=== PATIENT | female | born 1980 | race Caucasian/White ===

== ENCOUNTER 2021-01-09 12:57 | Outpatient (REF) | payer BC, SELFPAY ==
--- NOTE | ~2021-01-09 | MM_ITS ---
EXAMINATION: MM DIAGNOSTIC DIGITAL BREAST TOMOSYNTHESIS, BILATERAL US DIAGNOSTIC ULTRASOUND BREAST, BILATERAL CLINICAL INFORMATION: 40-year-old with recent bilateral breast pain and palpable fullness. Symptoms subsequently resolved. The lifetime risk of breast cancer based on the Tyrer-Cuzick Model is 22.1%. COMPARISON: Mammography: 07/02/2018, baseline. TECHNIQUE: Digital breast tomosynthesis is performed in both the craniocaudal and mediolateral oblique views along with computer-aided detection (CAD). Synthesized 2D images are generated from the tomosynthesis. Ultrasound bilateral breasts is performed using grayscale imaging and color Doppler without and with harmonics. Left breast is targeted to the 1:00 to 5:00 position and right breast 7:00 to 11:00 position. FINDINGS: The breasts are heterogeneously dense, which may obscure small masses (ACR BI-RADS breast composition Category c). There are no significant masses, abnormal calcifications, or other abnormalities. No developing density. No skin thickening or coarsening of the Jb's ligaments. Bilateral targeted breast ultrasound shows no cystic or solid mass, architectural abnormality, or focal duct ectasia. There is no skin thickening or edema tracking in soft tissue planes. Results are discussed with the patient at time of visit. MM/MM tomosynthesis diagnostic BI IMPRESSION: 1. No mammographic evidence of malignancy there are inflammatory changes. 2. Unremarkable bilateral targeted breast ultrasound. ASSESSMENT: BI-RADS 1: Negative RECOMMENDATION: 1. Routine annual mammography screening. 2. The lifetime risk of breast cancer based on the Tyrer-Cuzick Model is 22.1%. Additional annual adjunct screening with breast MRI may be of benefit in women with a risk score of 20% or greater. This patient's information was entered into a reminder system with a target due date for their next mammogram.
== END 2021-01-09 12:58 | disposition home or self-care (01) ==
LOC: HO.MAMMO 12:57
PROVIDERS: Visit Provider Internal Medicine
DX: N63.15 Unspecified lump in the right breast, overlapping quadrants (principal); N63.25 Unspecified lump in the left breast, overlapping quadrants; N64.4 Mastodynia
CPT/HCPCS: 76642; 77062; 77066

== ENCOUNTER → 2021-01-24 11:30 | Outpatient (BNVA) | payer BC, SELFPAY | PROVIDERS: PCP Internal Medicine; Visit Provider Surgery ==

== ENCOUNTER 2021-02-02 09:32 | Outpatient (REF) | payer BC, SELFPAY ==
--- NOTE | ~2021-02-02 | MR_ITS ---
EXAMINATION: MR BREAST WITHOUT AND WITH CONTRAST, BILATERAL CLINICAL INFORMATION: High-risk screening. History of recent bilateral breast pain. Family history of breast cancer including maternal aunt and paternal grandmother. Question of lump on the outside left breast. COMPARISON: Mammogram and ultrasound 01/09/2021. No prior breast MRI. TECHNIQUE: Imaging was performed with a dedicated breast coil. Prior to the administration of contrast, bilateral axial T1 and bilateral axial T2 weighted sequences were obtained. After the uneventful administration of?5.5 mL of Gadavist, dynamic contrast-enhanced VIBRANT series through the breasts in the axial plane were performed. Subtracted images were performed and reviewed. A delayed sagittal sequence through both breasts was acquired. Additionally, CAD post-processing, including maximum intensity projections, 3-D reconstructions and kinetic analysis, were performed an independent workstation and reviewed by the interpreting radiologist is a portion of this exam. FINDINGS: The patient's fibroglandular tissue demonstrates moderate background enhancement. LEFT BREAST: In the 2 o'clock position of the left breast, 4.7 cm from nipple, there is a 0.4 cm enhancing focus with indistinct margins (image 58, series 100). Finding demonstrates plateau or type II enhancement. There is no T2 correlate. Finding is not adjacent to a blood vessel. No mammographic correlate. MRI guided biopsy is recommended. Anterior to this finding in the 12 o'clock position, there is a linear area of [id number] enhancement measuring 0.5 cm in size anterior to posterior which also demonstrates plateau or type II enhancement (image 85, series 100). There is no T2 correlate. No mammographic correlate. Finding is indeterminate. MRI-guided biopsy is recommended. Both findings are asymmetric compared to the contralateral side. Both findings do not have T2 correlates. Review of the kinetic images demonstrates no additional suspicious findings. RIGHT BREAST: No suspicious masslike or non-masslike enhancement. No abnormal skin thickening or nipple retraction. No abnormal architectural distortion. Review of the T2 weighted images demonstrates no fibrocystic changes or dilated ducts. Review of kinetic images reveals no additional findings. There is no suspicious internal mammary chain or axillary adenopathy. Limited views of the chest and abdomen are unremarkable. MR/MR breast BI wo/w con IMPRESSION: 1. Indeterminate enhancing focus, 2 o'clock and linear enhancement, 12 o'clock in the left breast. MRI-guided biopsy recommended. 2. No convincing MR specific evidence of malignancy within the contralateral right breast. ASSESSMENT: LEFT BREAST: BI-RADS 4 - Suspicious abnormality - Biopsy should be considered. RIGHT BREAST: BI-RADS 1-Negative. RECOMMENDATIONS: MRI-guided biopsy, left breast, 2 areas. These can be scheduled on the same day. We will contact the referring office at the biopsy recommendations.
== END 2021-02-02 09:33 | disposition home or self-care (01) ==
LOC: HO.MRI 09:32
PROVIDERS: Visit Provider Surgery
DX: Z91.89 Other specified personal risk factors, not elsewhere classified (principal); N64.4 Mastodynia
CPT/HCPCS: 77049; A9585

== ENCOUNTER 2021-02-15 07:47 | Outpatient (REF) | payer BC, SELFPAY ==
--- NOTE | ~2021-02-15 | MM_ITS ---
EXAMINATION: MR GUIDED VACUUM-ASSISTED CORE BIOPSY BREAST, LEFT (TWO SITES) MM DIGITAL MAMMOGRAPHY POST BIOPSY, LEFT CLINICAL INFORMATION: 40-year-old with 2 small sites of enhancement left breast on high risk screening MRI. COMPARISON: Mammography 01/09/2021, bilateral targeted breast ultrasound 01/09/2021, high risk screening MRI without and with contrast 02/02/2021. TECHNIQUE/PROCEDURE: Informed consent was obtained from the patient after discussion of the benefits, risks, and alternatives to biopsy today. Patient appeared to understand. Gave opportunity for questions. Patient signed consent form. Biopsy is performed under MRI guidance using breast surface coil. Imaging is performed without and with use of 5.5 mL Gadavist gadolinium contrast. [employer] introducer localization system is used with grid. LEFT (2:00 Lesion): LESION: 4 mm enhancing focus 2:00 position left breast. LOCAL ANESTHESIA: 7 mL 1% lidocaine; 11 mL 1% lidocaine with epinephrine. NEEDLE: [employer] Atec 9-gauge vacuum assisted core biopsy device. APPROACH: Lateral medial. CORES: 9. CLIP: [employer] spool (barbell) shaped shape LEFT (12:00 Lesion): Separate new biopsy supplies used for second site. LESION: Short 5 mm linear enhancing focus 12:00 position slightly more anterior to other lesion. LOCAL ANESTHESIA: : 7 mL 1% lidocaine; 11 mL 1% lidocaine with epinephrine. NEEDLE: [employer] Atec 9-gauge vacuum assisted core biopsy device. APPROACH: Lateral medial. CORES: 8. CLIP: [employer]Mark cylinder shape. POSTPROCEDURE UNILATERAL DIGITAL MAMMOGRAM: Mammography is performed using digital mammography in CC and ML views. The breasts are heterogeneously dense, which may obscure small masses (ACR BI-RADS breast composition Category c). The clip markers are position. Small hematoma 12:00 position, around 2 cm size. The patient tolerated the procedure well. Home instructions reviewed with the patient. Final pathology results are pending. MM/MM diagnostic mammo unilat LT IMPRESSION: 1. Status post MRI guided vacuum-assisted core biopsy left breast at two sites. 2. Clip placement at both sites. 3. Small hematoma at 12:00 site of sampling. 4. Final pathology results pending. An addendum report will be issued.
[2021-02-15] MEDS: Lidocaine HCl 1 % MPF 5 ML VIAL SUBCUT ×3 (10:55→10:56)
== END 2021-02-15 07:48 | disposition home or self-care (01) ==
LOC: HO.MRI 07:47
PROVIDERS: PCP Internal Medicine; Visit Provider Surgery
DX: N64.4 Mastodynia (principal); R92.8 Other abnormal and inconclusive findings on diagnostic imaging of breast; Z91.89 Other specified personal risk factors, not elsewhere classified
CPT/HCPCS: 19085; 19086; 77065; 88305; A4648; A9585

== ENCOUNTER 2021-06-17 14:17 | Emergency (ER) | payer BC, SELFPAY ==
--- NOTE | ~2021-06-17 | CT_ITS ---
EXAMINATION: CT ABDOMEN AND PELVIS WITH CONTRAST CLINICAL INFORMATION: Right lower quadrant pain with question of appendicitis COMPARISON: CTA chest 04/01/2019 TECHNIQUE: Multidetector volumetric images were obtained from the superior aspect of the liver through the pubic symphysis following administration 85 mL of Omnipaque 350 intravenous contrast. Sagittal and coronal reformatted images were obtained on the technologist's workstation. Oral contrast: No This CT examination was performed using dose optimization techniques as appropriate, variously including the following: *Automated exposure control *Adjustment of mA and/or kV according to patient size (this includes techniques or standardized protocols for targeted exams where dose is matched to indication/reason for exam; i.e. extremities or head) *Use of iterative reconstruction technique DLP: 376 mGy-cm FINDINGS: LUNG BASES: The visualized lung bases are unremarkable. LIVER, GALLBLADDER, AND BILIARY TREE: The liver is normal in size, shape, and attenuation. There is a tiny 5 mm hypodensity seen in the right lobe of the liver that is indeterminate because of its small size (503:126). No suspicious focal hepatic lesion or biliary ductal dilatation is present. The gallbladder is unremarkable with no evidence of radiopaque gallstones, gallbladder wall thickening, or obvious pericholecystic inflammatory changes. PANCREAS: Unremarkable. SPLEEN: Unremarkable. ADRENAL GLANDS: Unremarkable. KIDNEYS AND URETERS: The kidneys are normal in size, shape, and attenuation. A tiny 5 mm hypodensity seen in the mid left kidney which probably represents a cyst but is indeterminate because of its tiny size (503:143). No suspicious renal masses are seen. No hydronephrosis, hydroureter, or calculi seen. No perinephric stranding. BLADDER: Unremarkable. GASTROINTESTINAL TRACT: The small and large bowel are unremarkable. The appendix can be seen (see do images) and there is no convincing evidence of inflammatory changes or fluid collections to suggest appendicitis. Gas and stool is present throughout the colon. Multiple mildly prominent fluid-filled loops of small bowel present in the pelvis.. ABDOMINAL WALL: No significant hernia is appreciated. LYMPH NODES: No retroperitoneal lymphadenopathy VASCULAR: Unremarkable. PELVIC VISCERA: An anteverted uterus is present. A small amount of free fluid is present in the pelvis. OSSEOUS STRUCTURES: Unremarkable. CT/CT abdomen pelvis w con IMPRESSION: 1. No convincing evidence of appendicitis. 2. Prominent fluid-filled nondilated small bowel loops could represent enteritis. 3. Tiny indeterminate hypodensities in the liver and left kidney, most likely tiny cysts but are indeterminate because of their small size.
[2021-06-17 15:19] VITALS: BP 138/96; PULSE 75; RESP 16; TEMP 37; O2SAT 100; BMI 18.7
[2021-06-17 15:30] LABS: Glucose Urine UA NEG (NEG); Leukocyte Esterase Urine NEG (NEG); Nitrite Urine NEG (NEG); PH 7.5 (5.0-8.0); Specific Gravity - Urine 1.015 (1.005-1.025); Urine Blood NEG (NEG); Urine Ketones NEG (NEG); Urine Protein NEG (NEG-TRACE)
[2021-06-17 15:32] LABS: Appearance Urine CLEAR; Color Urine YELLOW
[2021-06-17 15:33] LABS: UPreg QC Valid YES; Urine Pregnancy NEGATIVE (NEGATIVE)
[2021-06-17 16:15] LABS: MANUAL DIFF FLAG NO
[2021-06-17 16:18] LABS: Basophils Absolute Auto 0.1 X10*3/uL (0.0-0.2); Basophils Percent Auto 2.7 % (0-2); Eosinophils Absolute Auto 0.1 X10*3/uL (0.0-0.4); Eosinophils Percent Auto 2.7 % (0-4); Hematocrit 37.9 % (37-47); Hemoglobin 12.9 g/dl (12.0-16.0); Imm Gran Abs Auto 0.01 X10*3/uL (0.00-0.03); Imm Gran Pct Auto 0.4 % (0.0-0.4); Lymphocytes Absolute Auto 1.1 X10*3/uL (1.2-4.9); Lymphocytes Percent Auto 42.7 % (20-40); Mean Platelet Volume 10.7 fL (9.4-12.3); Monocytes Absolute Auto 0.4 X10*3/uL (0.1-1.2); Monocytes Percent Auto 13.4 % (2-11); Neutrophils Percent Auto 38.1 % (45-73); Platelet Count 194 X10*3/uL (160-400); Red Blood Count 4.03 X10*6/uL (4.20-5.50); Red Cell Distribution Width 12.1 % (11.0-16.0); White Blood Count 2.6 X10*3/uL (4.8-10.8)
[2021-06-17 16:46] LABS: Anion Gap 12 (12-20); Blood Urea Nitrogen 12 mg/dL (9-16); Calcium 9.4 mg/dL (8.4-10.2); Carbon Dioxide 29 mmol/L (22-29); Chloride 105 mmol/L (96-108); Creatinine Clr Calc Pharmacy 83.7; Estimated Glomerular Filt Rate > 60; Glucose Random 88 mg/dL (60-115); Potassium 3.8 mmol/L (3.3-5.1); Sodium 142 mmol/L (135-145)
--- NOTE | 2021-06-17 17:47 | ED.ABDPAIN ---
HPI - Abdominal Pain General Chief Complaint: Abdominal Pain Stated Complaint: ABD PAIN Time Seen by Provider: 06/17/21 17:46 History of Present Illness HPI narrative: Patient complains of right-sided pelvic pain starting yesterday and coming intermittently with crampy pain, there is no associated nausea vomiting there is no loss of appetite there is no anorexia there is no dysuria there is no abnormal bleeding there is no abnormal discharge there is no nausea vomiting or diarrhea no back pain no chest pain The patient also complains of an episode similar to many prior where she was walking near a pool and felt dizzy and faint and had to sit down and then laid down to feel back to normal she never had chest pain no palpitations no shortness of breath and feels fine now She has seen identification technician and doctor's to be worked up for prior episodes similar to this with no findings Related Data Home Medications Medication Instructions Recorded Confirmed No Known Home Meds 01/24/21 02/15/21 Allergies Allergy/AdvReac Type Severity Reaction Status Date / Time pitted fruit Allergy Unknown hives Uncoded 09/21/18 00:00 SEASONAL ALLERGIES Allergy Unknown UNKOWN Uncoded 08/10/20 16:41 seasonal allergies Allergy Unknown Uncoded 04/22/19 00:00 Review of Systems Review of Systems Positive for right low abdominal pain and an episode earlier today of feeling faint Negatives are no fever no chills no no weakness no headache no neck pain no chest pain no shortness of breath no nausea vomiting or diarrhea no dysuria no skin rash no anorexia no loss of appetite Yes all other systems are reviewed and are negative Physical Exam Vital Signs: Vital Signs: Last Vital Signs Temp 98.6 F 06/17/21 15:19 Pulse 53 06/17/21 18:59 Resp 16 06/17/21 18:59 BP 116/71 06/17/21 18:59 Pulse Ox 98 06/17/21 18:59 Body Mass Index 18.7 General appearance is no acute distress The pupils are anicteric with no pallor The pharynx is clear with moist mucous membranes Neck is supple The chest is clear to auscultation bilateral Heart no murmur The abdomen has right low abdominal tenderness without rebound or guarding the tenderness is below McBurney's point, there is no other tenderness Pelvic exam showed scant white discharge a normal appearing cervix, there was no cervical motion tenderness there was no mass or adnexal tenderness no bleeding Extremities full range of motion x4 Skin no rash Neuro no focal deficit, she is A&O x3, or verbal interaction both expression and understanding are normal, her gait and balance are normal there is no facial asymmetry and motor is 5/5 x4 with sensation intact and symmetrical Course Course Course Narrative: test was negative Urinalysis was normal White count was low but patient says this is normal for her and is always this way, there was no other significant abnormality on chemistries or CBC A CT of the abdomen and pelvis did not identify any acute pathology Repeat abdominal exam again shows very minor tenderness without rebound or guarding there is no progression of the exam and patient is comfortable and does not need any pain medication and tolerates p.o. For her fainting episode an EKG was sinus bradycardia with a rate of 54 intervals were normal there were no ischemic changes no ST elevations, QT was in the normal range Screening troponin was done and it was negative for an incident which happened 6 hours ago and never included chest pain Patient is well-appearing and is discharged to follow with her doctor and pre billing clinician, diagnosis is vasovagal episode and abdominal pain unknown etiology MDM - Abdominal Pain Lab Data Result diagrams: 06/17/21 16:10 06/17/21 16:10 Labs: Lab Results 06/17/21 06/17/21 06/17/21 Range/Units 15:25 15:25 16:10 WBC 2.6 L (4.8-10.8) X10*3/uL RBC 4.03 L (4.20-5.50) X10*6/uL Hgb 12.9 (12.0-16.0) g/dl Hct 37.9 (37-47) % MCV 94.0 (80-98) fL MCH 32.0 (27.0-33.0) pg MCHC 34.0 (31.0-35.0) g/dl RDW 12.1 (11.0-16.0) % Plt Count 194 (160-400) X10*3/uL MPV 10.7 (9.4-12.3) fL Immature Gran % (Auto) 0.4 (0.0-0.4) % Neut % (Auto) 38.1 L (45-73) % Lymph % (Auto) 42.7 H (20-40) % Grimes % (Auto) 13.4 H (2-11) % Eos % (Auto) 2.7 (0-4) % Baso % (Auto) 2.7 H (0-2) % Lymph # (Auto) 1.1 L (1.2-4.9) X10*3/uL Grimes # (Auto) 0.4 (0.1-1.2) X10*3/uL Eos # (Auto) 0.1 (0.0-0.4) X10*3/uL Baso # (Auto) 0.1 (0.0-0.2) X10*3/uL Abs Immat Gran (auto) 0.01 (0.00-0.03) X10*3/uL Absolute Neuts (auto) 1.0 L (2.0-8.3) X10*3/uL Absolute Nucleated RBC 0.000 (0.0-0.012) X10*3/uL Nucleated RBC % (auto) 0.0 (0.0-0.2) /100WBC Sodium (135-145) mmol/L Potassium (3.3-5.1) mmol/L Chloride (96-108) mmol/L Carbon Dioxide (22-29) mmol/L Anion Gap (12-20) BUN (9-16) mg/dL Creatinine (0.5-1.4) mg/dL Estim Creat Clear Calc Estimated GFR Random Glucose (60-115) mg/dL Calcium (8.4-10.2) mg/dL Troponin I High Sens (<3.5-17.0) ng/L Urine Color YELLOW Urine Appearance CLEAR Urine pH 7.5 (5.0-8.0) Ur Specific Raymond 1.015 (1.005-1.025) Urine Protein NEG (NEG-TRACE) MG/DL Urine Glucose (UA) NEG (NEG) MG/DL Urine Ketones NEG (NEG) MG/DL Urine Blood NEG (NEG) Urine Nitrite NEG (NEG) Ur Leukocyte Esterase NEG (NEG) Urine Test NEGATIVE (NEGATIVE) 06/17/21 06/17/21 Range/Units 16:10 18:47 WBC (4.8-10.8) X10*3/uL RBC (4.20-5.50) X10*6/uL Hgb (12.0-16.0) g/dl Hct (37-47) % MCV (80-98) fL MCH (27.0-33.0) pg MCHC (31.0-35.0) g/dl RDW (11.0-16.0) % Plt Count (160-400) X10*3/uL MPV (9.4-12.3) fL Immature Gran % (Auto) (0.0-0.4) % Neut % (Auto) (45-73) % Lymph % (Auto) (20-40) % Grimes % (Auto) (2-11) % Eos % (Auto) (0-4) % Baso % (Auto) (0-2) % Lymph # (Auto) (1.2-4.9) X10*3/uL Grimes # (Auto) (0.1-1.2) X10*3/uL Eos # (Auto) (0.0-0.4) X10*3/uL Baso # (Auto) (0.0-0.2) X10*3/uL Abs Immat Gran (auto) (0.00-0.03) X10*3/uL Absolute Neuts (auto) (2.0-8.3) X10*3/uL Absolute Nucleated RBC (0.0-0.012) X10*3/uL Nucleated RBC % (auto) (0.0-0.2) /100WBC Sodium 142 (135-145) mmol/L Potassium 3.8 (3.3-5.1) mmol/L Chloride 105 (96-108) mmol/L Carbon Dioxide 29 (22-29) mmol/L Anion Gap 12 (12-20) BUN 12 (9-16) mg/dL Creatinine 0.82 (0.5-1.4) mg/dL Estim Creat Clear Calc 83.7 Estimated GFR > 60 Random Glucose 88 (60-115) mg/dL Calcium 9.4 (8.4-10.2) mg/dL Troponin I High Sens < 3.5 (<3.5-17.0) ng/L Urine Color Urine Appearance Urine pH (5.0-8.0) Ur Specific Raymond (1.005-1.025) Urine Protein (NEG-TRACE) MG/DL Urine Glucose (UA) (NEG) MG/DL Urine Ketones (NEG) MG/DL Urine Blood (NEG) Urine Nitrite (NEG) Ur Leukocyte Esterase (NEG) Urine Test (NEGATIVE) Discharge Plan Discharge Clinical Impression: Pelvic pain, Vasovagal episode Patient Disposition: Home, Self-Care Additional Instructions: Our workup today for the right pelvic pain did not find any dangerous emergency, there is no sign of infection or appendicitis now Your test was negative, urine test was normal and CT of her abdomen did not show any emergent condition Return any time for worsening abdominal pain vomiting fever burning with urination any worse condition or any concerns Follow with her pre billing clinician and primary care doctor for further evaluation You can use over the counter Tylenol or Motrin as needed for discomfort Your episode of feeling faint may have been from mild dehydration or a vasovagal episode which is a drop in blood pressure when sitting or standing that is relieved by laying down Your EKG did not show any dangerous arrhythmia or evidence of ischemia Follow with identification technician and primary care for further evaluation and make sure you stay well hydrated If you feel dizzy immediately find a place to lay down and that will usually enable your blood pressure to come back up and enable you to feel better Prescriptions: No Action No Known Home Meds RF: 0 PMFSH Past Medical History Source: nursing notes reviewed Surgical History History of wisdom tooth extraction Family History Family History Mother Colon cancer, Onset Age: 60 Maternal Aunt Breast cancer, Onset Age: 50 Ovarian cancer, Onset Age: 57 Father Melanoma, Onset Age: 75 Brother Melanoma, Onset Age: 25 Social History Social History Advance Directives: No Advance Directives Information Provided: Yes Patient : No
--- NOTE | 2021-06-17 18:02 | ECG_ITS ---
Test Reason : ABDOMINAL PAIN Blood Pressure : / mmHG Vent. Rate : 054 BPM Atrial Rate : 054 BPM P-R Int : 154 ms QRS Dur : 084 ms QT Int : 440 ms P-R-T Axes : 071 071 063 degrees QTc Int : 417 ms Sinus bradycardia Otherwise normal ECG When compared with ECG of 20-DEC-2019 12:34, No significant change was found Referred By: Hamilton Gomes Electronically Signed By:ISADORA BERG
[2021-06-17] MEDS: iohexoL 350 MG/ML 100 ML INFUS..BTL IV (18:57)
[2021-06-17] MEDS: 0.9 % Sodium Chloride 1,000 ML 999 ML IVCONT (18:58)
[2021-06-17 18:59] VITALS: BP 116/71; PULSE 53; RESP 16; O2SAT 98
[2021-06-17 19:18] LABS: Troponin-I High Sensitivity < 3.5 ng/L (<3.5-17.0)
[2021-06-18 02:24] LABS: CT PCR NOT DETECTED (Not Detect.); NG PCR NOT DETECTED (Not Detect.)
[2021-06-18 09:10] LABS: BV Int Neg Control Negative (Negative); BV Int Pos Control Positive (Positive)
== END 2021-06-17 20:35 | disposition home or self-care (01) ==
PROVIDERS: Physician Assistant Medical; Emergency Provider Emergency Medicine; PCP Internal Medicine
DX: R10.2 Pelvic and perineal pain (principal); R55 Syncope and collapse
CPT/HCPCS: 36415; 74177; 80048; 81003; 81025; 84484; 85025; 87480; 87491; 87510; 87591; 87660; 93005; 96360; 99284; Q9967

== ENCOUNTER 2021-12-10 13:25 | Outpatient (REF) | payer BC, SELFPAY ==
--- NOTE | ~2021-12-10 | XR_ITS ---
EXAMINATION: XR ABDOMEN KUB CLINICAL INDICATION: Right lower quadrant pain, hematuria COMPARISON: CT abdomen and pelvis with contrast 06/17/2021 TECHNIQUE: AP x2 views of the abdomen. FINDINGS: There is scattered gas in the bowel of normal caliber. No gaseous dilatation of bowel or abnormal collections of gas. Lung bases are clear. There is a amorphous calcification overlying the lateral left renal fossa, believed to be related to the costal cartilage. There is a small calcification overlying lower right renal fossa, costal cartilage versus calculus. There are no visible ureteral calculi. Bony structures are unremarkable. XR/XR KUB IMPRESSION: 1. Calcification overlying right renal fossa (calculus versus costochondral cartilage). 2. Lung bases clear. Bowel gas within normal.
== END 2021-12-10 13:26 | disposition home or self-care (01) ==
LOC: HO.HMGCX 13:25
PROVIDERS: Visit Provider Internal Medicine
DX: R10.31 Right lower quadrant pain (principal)
CPT/HCPCS: 74018

== ENCOUNTER 2022-01-14 11:02 | Outpatient (REF) | payer BC, SELFPAY ==
--- NOTE | ~2022-01-14 | MM_ITS ---
EXAMINATION: MM SCREENING DIGITAL BREAST TOMOSYNTHESIS, BILATERAL CLINICAL INFORMATION: Screening. Asymptomatic. Status post benign left MR guided biopsy 2 sites 02/15/2021 (both locations [facility]). The lifetime risk of breast cancer based on the Tyrer-Cuzick Model is 19%. COMPARISON: Mammography: 02/15/2021 01/09/2021, 07/02/2018 (baseline). MR guided biopsy 02/15/2021. TECHNIQUE: Digital breast tomosynthesis is performed in both the craniocaudal and mediolateral oblique views along with computer-aided detection (CAD). Synthesized 2D images are generated from the tomosynthesis. FINDINGS: The breasts are heterogeneously dense, which may obscure small masses (ACR BI-RADS breast composition Category c). There are no significant masses, abnormal calcifications, or other abnormalities. Parenchymal pattern is similar to prior studies. There are 2 biopsy clip markers left breast 12:00 and 2:00 position, respectively. There are no significant changes. MM/MM tomosynthesis screening BI IMPRESSION: No mammographic evidence of malignancy. ASSESSMENT: BI-RADS 1: Negative RECOMMENDATION: Routine annual mammography screening. This patient's information was entered into a reminder system with a target due date for their next mammogram.
== END 2022-01-14 11:03 | disposition home or self-care (01) ==
LOC: HO.MAMMO 11:02
PROVIDERS: PCP Internal Medicine; Visit Provider Internal Medicine
DX: Z12.31 Encounter for screening mammogram for malignant neoplasm of breast (principal)
CPT/HCPCS: 77063; 77067

== ENCOUNTER 2022-07-02 12:17 | Outpatient (REF) | payer BC, SELFPAY ==
[2022-07-03 11:11] LABS: CT PCR NOT DETECTED (Not Detect.); NG PCR NOT DETECTED (Not Detect.)
[2022-07-03 14:20] LABS: BV Int Neg Control Negative (Negative); BV Int Pos Control Positive (Positive)
[2022-07-09 06:51] LABS: HPV mRNA E6/E7 rflx Not Detected (Not Detected)
== END 2022-07-02 12:18 | disposition home or self-care (01) ==
LOC: HO.LAB 12:17
PROVIDERS: Visit Provider Advanced Practice Midwife
DX: Z01.419 Encounter for gynecological examination (general) (routine) without abnormal findings (principal); Z11.51 Encounter for screening for human papillomavirus (HPV)
CPT/HCPCS: 87480; 87491; 87510; 87591; 87624; 87660; 88142

== ENCOUNTER 2023-01-15 12:04 | Outpatient (REF) | payer BC, SELFPAY ==
--- NOTE | ~2023-01-15 | MM_ITS ---
EXAMINATION: MM SCREENING DIGITAL BREAST TOMOSYNTHESIS, BILATERAL CLINICAL INFORMATION: Screening. Asymptomatic. The lifetime risk of breast cancer based on the Tyrer-Cuzick Model is 21%. COMPARISON: Mammography: 01/14/2022, 02/15/2021, 01/09/2021, 07/02/2018 TECHNIQUE: Digital breast tomosynthesis is performed in both the craniocaudal and mediolateral oblique views along with computer-aided detection (CAD). Synthesized 2D images are generated from the tomosynthesis. Additional left MLO view is provided. FINDINGS: There are scattered areas of fibroglandular density (ACR BI-RADS breast composition Category b). There are no significant masses, abnormal calcifications, or other abnormalities. There is no architectural abnormality. 2 biopsy clip markers are again noted anterior upper left breast. The axilla are unremarkable. The skin contours are smooth. MM/MM tomosynthesis screening BI IMPRESSION: No mammographic evidence of malignancy. ASSESSMENT: BI-RADS 1: Negative RECOMMENDATION: Routine annual mammography screening. This patient's information was entered into a reminder system with a target due date for their next mammogram.
== END 2023-01-15 12:05 | disposition home or self-care (01) ==
LOC: HO.MAMMO 12:04
PROVIDERS: PCP Internal Medicine; Visit Provider Internal Medicine
DX: Z12.31 Encounter for screening mammogram for malignant neoplasm of breast (principal)
CPT/HCPCS: 77063; 77067

== ENCOUNTER 2023-01-31 16:22 | Outpatient (REF) | payer BC, SELFPAY ==
--- NOTE | ~2023-01-31 | XR_ITS ---
EXAMINATION: XR CHEST CLINICAL INFORMATION: Cough for 2 weeks. COMPARISON: 12/20/2019 chest radiograph. TECHNIQUE: 2 views of the chest were obtained. FINDINGS: No significant abnormality is noted involving the heart, lungs, mediastinum, bony thorax or soft tissues. XR/XR chest 2V IMPRESSION: No acute cardiopulmonary process.
== END 2023-01-31 16:23 | disposition home or self-care (01) ==
LOC: HO.XRAY 16:22
PROVIDERS: PCP Internal Medicine; Visit Provider Internal Medicine
DX: R05.9 Cough, unspecified (principal)
CPT/HCPCS: 71046

== ENCOUNTER → 2023-02-20 15:11 | Outpatient (BNVA) | payer BC, SELFPAY | PROVIDERS: PCP Internal Medicine; Referring Provider Internal Medicine; Visit Provider Internal Medicine Cardiovascular Disease | DX: R55 Syncope and collapse (principal) | CPT/HCPCS: 93005 ==

== ENCOUNTER → 2023-05-21 14:10 | Outpatient (BNVA) | payer BC, SELFPAY | PROVIDERS: Visit Provider Internal Medicine Cardiovascular Disease ==

== ENCOUNTER 2023-07-03 11:06 | Outpatient (AMB) | payer BC, SELFPAY ==
--- NOTE | 2023-07-03 11:12 | MHC.OFFVIS ---
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 The can be very uncomfortable. She has an extensive family history of breast and ovarian cancer she was getting ultrasounds and mammograms alternating every 6 months, but her last mammogram was within normal limits and the radiologist said to return in a year and because her breast biopsy that was done a few years ago was so traumatic well she will not ignore anything and wants to keep up with screening she would rather not go searching for trouble either and she feels comfortable with the a recommendation to return in a year and she is going to go with that. We discussed the braca testing. On questioning about other symptom all eg she does report that sometime she has some abdominal bloating at times she does not get periods anymore so there is no cyclic thing that she can attributed to because of her family history of ovarian cancer I will be ordering a pelvic ultrasound. She drinks lots of water. She used to run but she now she is not running but she is trying to be be cognizant of activity and move her arms and legs. She works for jobs she is very busy with her children as well the 1 thing that may be suffering is sleep. She has been undergoing a challenging evaluation to try and figure out if she has got something cardiac going on she is being followed by cardiologists here and in [place] and has a follow-up visit with the laborer ammunition assembly here the last time she was in [place] there was the active discussion that she participated in with the to laborer ammunition assembly about what would be the next step of investigation and it was decided against because it was somewhat invasive. When I asked her directly if she was worried about her health she did tear up briefly. [facility] Surgical History (Updated 07/03/23 @ 12:30 by Nighat Ryees CNM) H/O breast biopsy History of endometrial ablation History of wisdom tooth extraction Family History Mother Colon cancer, Onset Age: 60 Maternal Aunt Breast cancer, Onset Age: 50 Ovarian cancer, Onset Age: 57 Father Melanoma, Onset Age: 75 Brother Melanoma, Onset Age: 25 Social History Alcohol intake: current Alcohol intake frequency: holidays/special occasions only Patient Tobacco Use Status: Never used Tobacco Female Reproductive History Menstrual Age of Menarche: 14 Total pregnancies: 3 Number of Living Children: 2 Ab spontaneous: 1 Date of last pap smear: 07/02/22 (wnl) Physical Exam Vital Signs: Last Vital Signs BP 112/60 07/03/23 11:16 BMI result Body Mass Index 18.8 Const General: healthy appearing, comfortable, no acute distress, well developed and alert Nutritional Appearance: average body habitus Orientation/consciousness: patient oriented x3 Limitations: no limitations HEENT Head: Yes normocephalic Neck Neck: Yes normal visual inspection Chest Chest palpation & inspection: normal inspection of the chest Breast/axilla inspection: normal inspection of the breasts and normal inspection of the axillae Breast/axilla palpation: normal palpation of the breasts and normal palpation of the axillae Resp Effort & Inspection: normal respiratory effort GI Inspection: Yes normal to inspection, No Abdominal wall edema and No distended Palpation (GI): Soft to palpation and nontender General: Yes bladder normal to palpation External Female Exam: normal external appearance and normal appearance of the urethra Speculum Exam - Vagina: normal appearance of the vagina, normal palpation and normal vaginal discharge Speculum Exam - Cervix: normal appearance of the cervix, normal palpation and nontender Bimanual exam- vagina & uterus: normal bimanual exam, normal palpation, uterine size normal, bladder normal to palpation, consistency normal, normal palpation, uterine mobility normal, uterine shape normal, No Cervical tenderness present, non-tender and no cervical motion tenderness Bimanual Exam- Adnexa, other: normal adnexae, no masses, normal and No adnexal tenderness Neuro General: patient oriented x3 Results Reviewed Results Reviewed: Name:Mohini Syed Age/Sex: 41/F Attending: Nighat Reyes CNM : 1980 Submitted by: Nighat Reyes CNM Copies to: MR #: [id number] ? Status: DEP REF Collected: 07/02/22 Location: .LAB Received: 07/04/22 Interpretation Satisfactory for evaluation. Negative for intraepithelial lesion or malignancy. HPV mRNA E6/E7:? NOT DETECTED This assay detects E6/E7 viral messenger RNA (mRNA) from 14 high-risk HPV types (16, 18, 31, 33, 35, 39, 45, 51, 52, 56, 58, 59, 66, 68) HPV testing performed by [facility], [place], [place].? See reference laboratory portion of the EMR for entire report. Clinical Information LMP: No menses Previous PAP test: 08/27/16, WNL Material Received ThinPrep-Cervical Electronically Signed By: Elizabet Howard ? 07/12/22 9243 The Pap Test is a screening procedure with the inherent possibility of both false negative and false positive results.? Results should be interpreted in the context of historic and current clinical finding Endometrial ablation done here 2018 by ZAINA. Assessment & Plan Assessment & Plan (1) Well woman exam with routine gynecological exam: Code(s): Z01.419 - Encounter for gynecological examination (general) (routine) without abnormal findings (2) Cervical cancer screening: Comment: 07/02/2022 Pap is negative with negative HPV Code(s): Z12.4 - Encounter for screening for malignant neoplasm of cervix (3) Family hx of ovarian malignancy: Code(s): Z80.41 - Family history of malignant neoplasm of ovary (4) At high risk for breast cancer: Code(s): Z91.89 - Other specified personal risk factors, not elsewhere classified (5) Abdominal bloating: Code(s): R14.0 - Abdominal distension (gaseous) (6) H/O breast biopsy: Code(s): Z98.890 - Other specified postprocedural states (7) History of endometrial ablation: Code(s): Z98.890 - Other specified postprocedural states (8) Uterine cramping: Comment: after intercourse ( post endometrial ablation) Code(s): N94.89 - Other specified conditions associated with female genital organs and menstrual cycle Plan -----Discussed in this visit the following: healthy balanced diet, regular and consistent exercise, getting recommended health screens, doing the best she can for her particular health concerns, kegel exercises, pap smear screening and followup recommendations, mammography screening and SBE, normal changes in cycles in her life stage--- . 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 Discussed that because of her strong family history of ovarian cancer and the lack of definitive testing I will be ordering a pelvic ultrasound and she and I can have a visit after which can be a tele visit in her case. She is continuing cardiac follow-up. At this point she says she wants to continue with yearly mammograms as recommended by the radiologist as she did find the biopsy traumatic. She is healthy in her habits because she is so busy with work and life and children's activities a suggested prioritizing sleep. When she finally sits down she falls asleep could she is exhausted. Discussed the cramping after intercourse which would correspond with the contractions of orgasm/her orgasm, since endometrial ablation, and suggested possible use of ibuprofen but I could not come up with another suggestion to ameliorate those symptoms. We can have a tele visit after the ultrasound. Orders: Orders US pelvic and transvaginal Today R14.0 - Abdominal distension (gaseous), Z01.419 - Encounter for gynecological examination (general) (routine) without abnormal findings, Z12.4 - Encounter for screening for malignant neoplasm of cervix, Z80.41 - Family history of malignant neoplasm of ovary, Z91.89 - Other specified personal risk factors, not elsewhere classified Coding Level of Care Code Est Pt Prev Care 40-64y(24284) Diagnoses Well woman exam with routine gynecological exam Z01.419 Cervical cancer screening Z12.4 Family hx of ovarian malignancy Z80.41 At high risk for breast cancer Z91.89 Abdominal bloating R14.0 H/O breast biopsy Z98.890 History of endometrial ablation Z98.890 Uterine cramping N94.89
[2023-07-03 11:16] VITALS: BP 112/60; BMI 18.8
== END 2023-07-03 12:40 | disposition home or self-care (01) ==
LOC: HO.HWS 11:06
PROVIDERS: PCP Internal Medicine; Visit Provider Advanced Practice Midwife
DX: Z01.419 Encounter for gynecological examination (general) (routine) without abnormal findings (principal); Z12.4 Encounter for screening for malignant neoplasm of cervix; Z80.41 Family history of malignant neoplasm of ovary; Z91.89 Other specified personal risk factors, not elsewhere classified; R14.0 Abdominal distension (gaseous); Z98.890 Other specified postprocedural states; N94.89 Other specified conditions associated with female genital organs and menstrual cycle
CPT/HCPCS: 99396

== ENCOUNTER → 2023-07-03 11:06 | Outpatient (BNVA) | payer BC, SELFPAY | PROVIDERS: PCP Internal Medicine; Visit Provider Advanced Practice Midwife ==

== ENCOUNTER 2023-07-23 14:29 | Outpatient (REF) | payer BC, SELFPAY ==
--- NOTE | ~2023-07-23 | US_ITS ---
EXAMINATION: US PELVIS CLINICAL INFORMATION: Cramping COMPARISON: None available. TECHNIQUE: Ultrasound of the pelvis is performed using both transabdominal and transvaginal transducers along with Doppler. Transvaginal imaging is performed due to inadequate visualization transabdominally. FINDINGS: Uterus: The uterus is anteverted and measures 8.3 x 3.9 x 4.2 cm. Anteverted The double wall endometrial thickness is difficult to measure as per technologist status post ablation. There is fluid within the endometrial and cervical canals. Echogenic solid focus likely a blood clot is noted within the lower uterine segment. This is commensurate with patient's history of spotting. The uterus is otherwise smooth in contour and has normal myometrial echogenicity. No visible fibroid. Adnexa: Both ovaries are visualized. There is normal color flow to the adnexa. There is no ovarian torsion. There is no pelvic ascites or fluid collection. Right ovary measures 10 mL in volume and left ovary measures 4 mL in volume. US/US pelvic and transvaginal IMPRESSION: 1. Findings consistent with recent endometrial ablation. There is fluid within the endometrial and cervical canal which is commensurate with patient's history of spotting. 2. No discrete fibroid. 3. No evidence of any active torsion.
== END 2023-07-23 14:30 | disposition home or self-care (01) ==
LOC: HO.US 14:29
PROVIDERS: PCP Internal Medicine; Visit Provider Advanced Practice Midwife
DX: R14.0 Abdominal distension (gaseous) (principal); Z91.89 Other specified personal risk factors, not elsewhere classified; Z80.41 Family history of malignant neoplasm of ovary
CPT/HCPCS: 76830; 76856

== ENCOUNTER 2023-09-18 13:54 | Outpatient (AMB) | payer BC, SELFPAY ==
--- NOTE | 2023-09-18 13:55 | MHC.OFFVIS ---
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 She a number of health concerns this year including keeping passing out that is being evaluated by punch operator here and in [facility] and she has had 2 electrical cardiologists try to look at different pathways in her heart but nothing has been found pathologic, so now she is waiting on a neurological consult. She has a history of endometrial ablation, so does not get regular menses. she tells me she does not experience regular signs and symptoms of ovulation that she can not pinpoint either by pain or cervical mucus changes [facility] Surgical History (Updated 07/03/23 @ 12:30 by Nighat Reyes CNM) H/O breast biopsy History of endometrial ablation History of wisdom tooth extraction Family History Mother Colon cancer, Onset Age: 60 Maternal Aunt Breast cancer, Onset Age: 50 Ovarian cancer, Onset Age: 57 Father Melanoma, Onset Age: 75 Brother Melanoma, Onset Age: 25 Social History Alcohol intake: current Alcohol intake frequency: holidays/special occasions only Patient Tobacco Use Status: Never used Tobacco Female Reproductive History Menstrual Age of Menarche: 14 Results Reviewed Results Reviewed: Patient: Mohini Hutton MR#: [id number] : 1980 Acct:[id number] Age/Sex: 42 / F ADM Date: 07/23/23 Loc: HO.US Attending Dr: Nighat Reyes CNM Ordering Physician: Nighat Reyes CNM Date of Service: 08/30/23 Procedure(s): US pelvic and transvaginal Accession Number(s): [id number] cc: Nighat Reyes CNM~ EXAMINATION: US PELVIS CLINICAL INFORMATION: Cramping COMPARISON: None available. TECHNIQUE: Ultrasound of the pelvis is performed using both transabdominal and transvaginal transducers along with Doppler. Transvaginal imaging is performed due to inadequate visualization transabdominally. FINDINGS: Uterus: The uterus is anteverted and measures 8.3 x 3.9 x 4.2 cm. Anteverted The double wall endometrial thickness is difficult to measure as per technologist status post ablation. There is fluid within the endometrial and cervical canals. Echogenic solid focus likely a blood clot is noted within the lower uterine segment. This is commensurate with patient's history of spotting. The uterus is otherwise smooth in contour and has normal myometrial echogenicity. No visible fibroid. Adnexa: Both ovaries are visualized. There is normal color flow to the adnexa. There is no ovarian torsion. There is no pelvic ascites or fluid collection. Right ovary measures 10 mL in volume and left ovary measures 4 mL in volume. US/US pelvic and transvaginal IMPRESSION: 1. Findings consistent with recent endometrial ablation. There is fluid within the endometrial and cervical canal which is commensurate with patient's history of spotting. 2. No discrete fibroid. 3. No evidence of any active torsion. Dictated By: Kendall Villarreal MD Signed By: <Electronically signed by Kendall Villarreal MD in OV> 07/24/23 1245 DD/ 1449 TD/TT: Criminal Justice Professor: JOSHUA Assessment & Plan Assessment & Plan (1) Uterine cramping: Comment: after intercourse ( post endometrial ablation) Code(s): N94.89 - Other specified conditions associated with female genital organs and menstrual cycle (2) History of endometrial ablation: Code(s): Z98.890 - Other specified postprocedural states (3) Family hx of ovarian malignancy: Code(s): Z80.41 - Family history of malignant neoplasm of ovary (4) Abdominal bloating: Code(s): R14.0 - Abdominal distension (gaseous) Plan This is a tele visit to discuss patient's pelvic ultrasound results to explore spotting symptoms that she has had. She a number of health concerns this year including keeping passing out that is being evaluated by punch operator here and in [facility] and she has had 2 electrical cardiologists try to look at different pathways in her heart but nothing has been found pathologic, so now she is waiting on a neurological consult. She has a history of endometrial ablation, so does not get regular menses. she tells me she does not experience regular signs and symptoms of ovulation that she can not pinpoint either by pain or cervical mucus changes Reviewed the ultrasound with her in she did have questions as to why 1 ovary would be larger than the other measurements were not given other than mL 10 mL on the right side and left side measured 4 mL. Review with her that very often 1 ovary can be larger than the other and also it can depend on where she was in her cycle though since she does not get other clues about cycling from other ovulatory symptoms it would be hard to say when and where she was in her cycle based on these findings and the fact that she does not get menses makes it harder to pinpoint. Despite this there is no worrisome finding in this ultrasound so there probably is not any reason for any follow-up. Will see her next year Telehealth Telehealth Location of provider rendering services: practice address Location of patient: address on file Patient Identification confirmed using: Name, : Yes Telehealth method: video Patient verbally consented to treatment: Yes Patient verbally consented to billing insurance company: Yes Patient informed of any privacy concerns related to visit: Yes Coding Level of Care Code Tele Est Pt Level 3 (94685) Diagnoses Uterine cramping N94.89 History of endometrial ablation Z98.890 Family hx of ovarian malignancy Z80.41 Abdominal bloating R14.0 Time Spent (min) 15 Comment 3cr/6video/6 charting
== END 2023-09-18 15:22 | disposition home or self-care (01) ==
LOC: HO.HWS 13:54
PROVIDERS: PCP Internal Medicine; Visit Provider Advanced Practice Midwife
DX: N94.89 Other specified conditions associated with female genital organs and menstrual cycle (principal); Z98.890 Other specified postprocedural states; Z80.41 Family history of malignant neoplasm of ovary; R14.0 Abdominal distension (gaseous)
CPT/HCPCS: 99213

== ENCOUNTER → 2023-09-18 13:54 | Outpatient (BNVA) | payer BC, SELFPAY | PROVIDERS: PCP Internal Medicine; Visit Provider Advanced Practice Midwife ==

== ENCOUNTER 2023-10-08 15:00 | Outpatient (AMB) | payer BC, SELFPAY ==
[2023-10-08 15:02] VITALS: BP 120/70; PULSE 68; BMI 18.2
--- NOTE | 2023-10-08 15:02 | MHC.OFFVIS ---
Intake Vital Signs 10/08/23 15:02 Height 5 ft 9 in Weight 123 lb 7.342 oz BMI 18.2 BP 120/70 Blood Pressure Location Lt brachial Position Sitting Pulse 68 Intake Visit Reasons: 4 mth f/up Intake Note: 4 month follow-up still having the dizziness and chest pain at times Rotogravure Press Operator Required: No Allergies pitted fruit Allergy (Unknown, Uncoded 09/18/23 13:55) hives SEASONAL ALLERGIES Allergy (Unknown, Uncoded 09/18/23 13:55) UNKOWN seasonal allergies Allergy (Unknown, Uncoded 09/18/23 13:55) Hives Medication List - Last Reconciled 10/08/23 by Mitchel Lion MD No Known Home Meds HPI HPI Comments History of Present Illness Details 43-year-old female who is here for syncope. She was seen in 2019 for syncope. She had extensive workup done including echocardiography and Holter monitoring which was normal. She also had a referral for tilt-table testing but her insurance did not cover it at that time. In 2019 she was referred for 2nd opinion to [facility]. She saw Cardiology there and also was seen by electrophysiology. She said she wore a Holter monitor and then there was some discussion about putting a implantable loop recorder in her but it was decided that is not the best strategy. She said after that she had 1-1/2 year or so of no syncopal episodes. She again started having symptoms and more frequent symptoms this year. She said she had COVID-19 infection in December. Her symptoms predated COVID-19. After COVID-19 infection she had more frequent episodes. She describes a feeling of tightness in her chest and she feels unwell and feels her heart to be weird . After that she feels that she is going to pass out and usually collapses. She completed passed out when she had the 1st episode in 2018 or 19 but since then she does not completely lose consciousness and is aware of her surroundings. She said she recently had an episode where during any went her skin became very red. Also another time she has been given sugars with some improvement. She has never seen Endocrinology in the past rule out insulinoma or any tumors. She exercises regularly but her functional capacity has gone down. During exercise she does not have any significant symptoms. She hydrates herself. We discussed and she was referred for tilt-table testing. During tilt-table test after nitroglycerin administration she had a vagal response and had vasovagal syncope. After nitroglycerin administration heart rate went up and then slowly a blood pressure drop but she did not have clear bradycardic response were other had with her depressor response. She is back for follow-up and has been keeping herself well hydrated. She is saying she has started exercising less. She has not had any further syncopal episodes. She still gets some tachycardia off and on. 10/08/23: She returns for follow-up. She had 2 episodes since last visit. She said on 1 occasion she was talking to a colleague and started blankly staring at her and then started having chest tightness. She said she lowered herself to the floor and passed out for some time and woke up with people around her. She is saying that with nitroglycerin she had somewhat different symptoms. She is denying any other complaints right now. She is following the conservative measures including hydration and salt intake as before. [facility] Surgical History (Updated 07/03/23 @ 12:30 by Nighat Reyes CNM) H/O breast biopsy History of endometrial ablation History of wisdom tooth extraction Family History Mother Colon cancer, Onset Age: 60 Maternal Aunt Breast cancer, Onset Age: 50 Ovarian cancer, Onset Age: 57 Father Melanoma, Onset Age: 75 Brother Melanoma, Onset Age: 25 Social History Alcohol intake: current Alcohol intake frequency: holidays/special occasions only Patient Tobacco Use Status: Never used Tobacco Female Reproductive History Menstrual Age of Menarche: 14 Review of Systems Const Denies chills, Denies fatigue, Denies fever(s), Denies frequent falls, Denies weakness, Denies weight gain and Denies weight loss ENT Denies dizziness Card Denies chest pain, Denies leg edema, Denies lightheadedness, Denies palpitations, Denies dyspnea, Denies dyspnea on exertion, Denies orthopnea and Denies other (loss of consciousness) Resp Denies cough, Denies dyspnea and Denies dyspnea on exertion GI Denies hematochezia and Denies change in stool character Musc Denies abnormal gait, Denies muscle weakness, Denies numbness, Denies radiating pain into limb and Denies tingling Neuro Denies abnormal gait, Denies dizziness, Denies frequent falls, Denies numbness, Denies tingling and Denies weakness Endo Denies fatigue and Denies palpitations Physical Exam Vital Signs: Last Vital Signs Pulse 68 10/08/23 15:02 BP 120/70 10/08/23 15:02 BMI result Body Mass Index 18.2 GENERAL APPEARANCE: in no acute distress, pleasant. NECK: no carotid bruit, no jugular venous distention. SKIN: no suspicious lesions, warm and dry. HEART: no murmurs, regular rate and rhythm. LUNGS: clear to auscultation bilaterally. ABDOMEN: soft, nontender. EXTREMITIES: no edema. PERIPHERAL PULSES: equal. NEUROLOGIC: No gross deficits, AAO X 3 Assessment & Plan Assessment & Plan (1) Syncope: Code(s): R55 - Syncope and collapse Plan Pleasant 43-year-old female who is here for follow-up. She has history of syncopal episodes. Previous tilt-table testing was consistent with a vagal syncope but she also gets episodes where she has a blank stare and she has chest tightness and palpitations. Previous testing has been normal. She was referred to [facility] [place] for [facility] because clearly her symptoms are consistent with some sort of autonomic issue. These symptoms can be related to parts. She clearly also has vasovagal syncope based on the tilt-table testing. I have advised her to keep herself well hydrated which she is trying her best. Her blood pressure in the office is normal. I have explained to her that myasthenia drugs like pyridostigmine have some role in this situation and we can try that. She is due to see dysautonomia Clinic. Will decide about medications once she is seen by dysautonomia Clinic. In the meantime she will continue conservative measures as before. Thank you for allowing me to participate in the care of your patient. Please feel free to contact me if you have any questions. Coding Level of Care Code Est Pt Level 3 (90228) Diagnoses Syncope R55
== END 2023-10-08 15:31 | disposition home or self-care (01) ==
PROVIDERS: PCP Internal Medicine; Visit Provider Internal Medicine Cardiovascular Disease
DX: R55 Syncope and collapse (principal)
CPT/HCPCS: 99213

== ENCOUNTER → 2023-10-08 15:00 | Outpatient (BNVA) | payer BC, SELFPAY | PROVIDERS: PCP Internal Medicine; Visit Provider Internal Medicine Cardiovascular Disease ==

== ENCOUNTER → 2024-01-16 10:15 | Outpatient (BNV) | payer BC, SELFPAY | PROVIDERS: PCP Internal Medicine; Visit Provider Radiology Diagnostic Radiology | DX: N63.12 Unspecified lump in the right breast, upper inner quadrant (principal); N63.21 Unspecified lump in the left breast, upper outer quadrant; R92.8 Other abnormal and inconclusive findings on diagnostic imaging of breast | CPT/HCPCS: 77066 ==

== ENCOUNTER 2024-01-16 10:17 | Outpatient (REF) | payer BC, SELFPAY ==
--- NOTE | ~2024-01-16 | MM_ITS ---
EXAMINATION: MM DIAGNOSTIC DIGITAL BREAST TOMOSYNTHESIS, BILATERAL CLINICAL INFORMATION: The patient indicates that she has upper outer quadrant palpable lumps in each breast. COMPARISON: Mammography: This study is compared with prior mammograms dating back to 2018. TECHNIQUE: Digital breast tomosynthesis is performed in both the craniocaudal and mediolateral oblique views along with computer-aided detection (CAD). Synthesized 2D images are generated from the tomosynthesis. Bilateral CC and MLO spot compression of the upper outer quadrants of each breast and bilateral 90 degree views of each breast were obtained. FINDINGS: The breasts are heterogeneously dense, which may obscure small masses (ACR BI-RADS breast composition Category c). There are no significant masses, abnormal calcifications, or other abnormalities. There are 2 biopsy tissue markers in the superior aspect of the left breast. The patient indicates 2 lumps in the upper outer quadrant of the right breast and one lump in the upper outer quadrant of the left breast. Additional mammographic imaging of these regions reveals no underlying abnormality. The patient will return the next week for targeted sonographic imaging of the upper outer quadrants. MM/MM tomosynthesis diagnostic BI IMPRESSION: No mammographic signs of malignancy. No mammographic correlates with the upper outer quadrant palpable lumps indicated by the patient. Additional imaging with bilateral upper outer quadrant sonography is advised to complete the evaluation. ASSESSMENT: BI-RADS BI-RADS 0 - Incomplete: Needs additional Imaging. RECOMMENDATION: Additional Imaging required Results were provided to the patient at time of visit by the technologist. This patient's information was entered into a reminder system with a target due date for their next mammogram.
== END 2024-01-16 10:18 | disposition home or self-care (01) ==
LOC: HO.MAMMO 10:17
PROVIDERS: PCP Internal Medicine; Visit Provider Internal Medicine
DX: N64.4 Mastodynia (principal)
CPT/HCPCS: 77062; 77066

== ENCOUNTER → 2024-01-20 13:30 | Outpatient (BNV) | payer BC, SELFPAY | PROVIDERS: PCP Internal Medicine; Visit Provider Radiology Diagnostic Radiology | DX: N64.4 Mastodynia (principal) | CPT/HCPCS: 76642 ==

== ENCOUNTER 2024-01-20 13:35 | Outpatient (REF) | payer BC, SELFPAY ==
--- NOTE | ~2024-01-20 | US_ITS ---
EXAMINATION: US DIAGNOSTIC ULTRASOUND BREAST, BILATERAL CLINICAL INFORMATION: 43-year-old female complaining of painful palpable lumps bilateral breasts upper outer quadrant regions. COMPARISON: No prior ultrasound. Recent screening mammography 01/16/2024 was reviewed. TECHNIQUE: Ultrasound of the bilateral breasts is performed with real-time kahn scale imaging and color Doppler. Attention was focused on the upper outer quadrants of both breasts in the regions of painful palpable concern. FINDINGS: RIGHT BREAST: There is no focal suspicious finding. There is no solid mass, architectural abnormality, duct ectasia, cystic abnormality, or edema in the soft tissue planes. No ultrasonographic correlate to the palpable foci. LEFT BREAST: There is no focal suspicious finding. There is no solid mass, architectural abnormality, duct ectasia, cystic abnormality, or edema in the soft tissue planes. No ultrasonographic correlate to the palpable foci. US/US breast BI limited mamm only IMPRESSION: No findings suspicious for malignancy. Palpable painful foci in the upper outer bilateral breasts show no definite ultrasonographic correlate, nor mammographic correlate on review of the recent mammogram. Recommend clinical management. Otherwise, recommend resuming routine annual mammography. ASSESSMENT: BI-RADS 1: Negative RECOMMENDATION: 1. Patient should be managed based on the clinical impression. Decision to proceed with biopsy should be based on clinical grounds and degree of clinical concern. 2. Otherwise, routine annual screening mammography. This patient's information was entered into a reminder system with a target due date for their next mammogram.
== END 2024-01-20 13:36 | disposition home or self-care (01) ==
LOC: HO.MAMMO 13:35
PROVIDERS: PCP Internal Medicine; Visit Provider Internal Medicine
DX: N64.4 Mastodynia (principal)
CPT/HCPCS: 76642

== ENCOUNTER 2024-07-06 09:46 | Outpatient (AMB) | payer BC, SELFPAY ==
--- NOTE | 2024-07-06 09:52 | A.OFFVIS_ITS ---
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 She had extensive cardiac evaluations last year. She has a history of endometrial ablation so she does not get menses she occasionally gets spotting still and occasional bloating but nothing pandemic she had an ultrasound last year that was within normal limits for this history. 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 She is a family history of breast cancer and had full evaluation she does not have the BRCA gene. She had had consultations and a plan with Dr. Stern but she has not been getting MRIs as he recommended but she has been keeping up with her mammograms which are regular and there was a follow-up ultrasound to last year's which showed no evidence malignancy. She is also busy parenting so Friday she works from and some days office. [facility] Surgical History (Updated 07/03/23 @ 12:30 by Nighat Reyes CNM) H/O breast biopsy History of endometrial ablation History of wisdom tooth extraction Family History Mother Colon cancer, Onset Age: 60 Maternal Aunt Breast cancer, Onset Age: 50 Ovarian cancer, Onset Age: 57 Father Melanoma, Onset Age: 75 Brother Melanoma, Onset Age: 25 Social History Alcohol intake: current Alcohol intake frequency: holidays/special occasions only Patient Tobacco Use Status: Never used Tobacco Female Reproductive History Menstrual Age of Menarche: 14 control method: none Total pregnancies: 2 Date of last pap smear: 07/04/22 (neg,2009,WNL) Date of Mammogram: 01/16/24 Results Reviewed Results Reviewed: Name: Mohini Hutton Age/Sex: 41/F Attending: Nighat Reyes CNM : 1980 Submitted by: Nighat Reyes CNM Copies to: MR #: [id number] Status: DEP REF Collected: 07/02/22 Location: .LAB Received: 07/04/22 Interpretation Satisfactory for evaluation. Negative for intraepithelial lesion or malignancy. HPV mRNA E6/E7: NOT DETECTED This assay detects E6/E7 viral messenger RNA (mRNA) from 14 high-risk HPV types (16, 18, 31, 33, 35, 39, 45, 51, 52, 56, 58, 59, 66, 68) HPV testing performed by [facility], [place], [place]. See reference laboratory portion of the EMR for entire report. Clinical Information LMP: No menses Previous PAP test: 08/27/16, WNL Material Received ThinPrep-Cervical Electronically Signed By: Elizabet Howard 07/12/22 2775 The Pap Test is a screening procedure with the inherent possibility of both false negative and false positive results. Results should be interpreted in the context of historic and current clinical findings. Reliability of the Pap Test is enhanced by performing the test on a regular repetitive basis. Patient: Mohini Hutton Age/Sex: 41/F MR#: [id number] Page 1 of 1 Patient: Mohini Hutton MR#: [id number] : 1980 Acct:[id number] Age/Sex: 42 / F ADM Date: 07/23/23 Loc: HO.US Attending Dr: Nighat Reyes CNM Ordering Physician: Nighat Reyes CNM Date of Service: 07/23/23 Procedure(s): US pelvic and transvaginal Accession Number(s): [id number] cc: Nighat Reyes CNM~ EXAMINATION: US PELVIS CLINICAL INFORMATION: Cramping COMPARISON: None available. TECHNIQUE: Ultrasound of the pelvis is performed using both transabdominal and transvaginal transducers along with Doppler. Transvaginal imaging is performed due to inadequate visualization transabdominally. FINDINGS: Uterus: The uterus is anteverted and measures 8.3 x 3.9 x 4.2 cm. Anteverted The double wall endometrial thickness is difficult to measure as per technologist status post ablation. There is fluid within the endometrial and cervical canals. Echogenic solid focus likely a blood clot is noted within the lower uterine segment. This is commensurate with patient's history of spotting. The uterus is otherwise smooth in contour and has normal myometrial echogenicity. No visible fibroid. Adnexa: Both ovaries are visualized. There is normal color flow to the adnexa. There is no ovarian torsion. There is no pelvic ascites or fluid collection. Right ovary measures 10 mL in volume and left ovary measures 4 mL in volume. US/US pelvic and transvaginal IMPRESSION: 1. Findings consistent with recent endometrial ablation. There is fluid within the endometrial and cervical canal which is commensurate with patient's history of spotting. 2. No discrete fibroid. 3. No evidence of any active torsion. Dictated By: Kendall Villarreal MD Signed By: <Electronically signed by Kendall Villarreal MD in OV> 07/24/23 1245 DD/ 1449 TD/TT: Patient: Mohini Hutton MR#: [id number] : 1980 Acct:[id number] Age/Sex: 43 / F ADM Date: 01/16/24 Loc: HO.MAMMO Attending Dr: Hamilton Nagel MD Ordering Physician: Hamilton Nagel MD Results: 0Incomplete: Needs Additional Imaging Evaluation Date of Service: 01/16/24 Follow Up: Additional Imaging Procedure(s): MM tomosynthesis diagnostic BI Accession Number(s): [id number] cc: Hamilton Nagel MD~ EXAMINATION: MM DIAGNOSTIC DIGITAL BREAST TOMOSYNTHESIS, BILATERAL CLINICAL INFORMATION: The patient indicates that she has upper outer quadrant palpable lumps in each breast. COMPARISON: Mammography: This study is compared with prior mammograms dating back to 2018. TECHNIQUE: Digital breast tomosynthesis is performed in both the craniocaudal and mediolateral oblique views along with computer-aided detection (CAD). Synthesized 2D images are generated from the tomosynthesis. Bilateral CC and MLO spot compression of the upper outer quadrants of each breast and bilateral 90 degree views of each breast were obtained. FINDINGS: The breasts are heterogeneously dense, which may obscure small masses (ACR BI-RADS breast composition Category c). There are no significant masses, abnormal calcifications, or other abnormalities. There are 2 biopsy tissue markers in the superior aspect of the left breast. The patient indicates 2 lumps in the upper outer quadrant of the right breast and one lump in the upper outer quadrant of the left breast. Additional mammographic imaging of these regions reveals no underlying abnormality. The patient will return the next week for targeted sonographic imaging of the upper outer quadrants. MM/MM tomosynthesis diagnostic BI IMPRESSION: No mammographic signs of malignancy. No mammographic correlates with the upper outer quadrant palpable lumps indicated by the patient. Additional imaging with bilateral upper outer quadrant sonography is advised to complete the evaluation. ASSESSMENT: BI-RADS BI-RADS 0 - Incomplete: Needs additional Imaging. RECOMMENDATION: Additional Imaging required Results were provided to the patient at time of visit by the technologist. This patient's information was entered into a reminder system with a target due date for their next mammogram. Dictated By: Veronica Siddiqui MD Signed By: <Electronically signed by Veronica Siddiqui MD in OV> 01/16/24 1412 DD/ 1113 TD/TT: Lead Burner Supervisor: Patient: Mohini Hutton MR#: [id number] : 1980 Acct:[id number] Age/Sex: 43 / F ADM Date: 01/20/24 Loc: HO.MAMMO Attending Dr: Hamilton Nagel MD Ordering Physician: Hamilton Nagel MD Date of Service: 01/20/24 Procedure(s): US breast BI limited mamm only Accession Number(s): [id number] cc: Hamilton Nagel MD~ EXAMINATION: US DIAGNOSTIC ULTRASOUND BREAST, BILATERAL CLINICAL INFORMATION: 43-year-old female complaining of painful palpable lumps bilateral breasts upper outer quadrant regions. COMPARISON: No prior ultrasound. Recent screening mammography 01/16/2024 was reviewed. TECHNIQUE: Ultrasound of the bilateral breasts is performed with real-time kahn scale imaging and color Doppler. Attention was focused on the upper outer quadrants of both breasts in the regions of painful palpable concern. FINDINGS: RIGHT BREAST: There is no focal suspicious finding. There is no solid mass, architectural abnormality, duct ectasia, cystic abnormality, or edema in the soft tissue planes. No ultrasonographic correlate to the palpable foci. LEFT BREAST: There is no focal suspicious finding. There is no solid mass, architectural abnormality, duct ectasia, cystic abnormality, or edema in the soft tissue planes. No ultrasonographic correlate to the palpable foci. US/US breast BI limited mamm only IMPRESSION: No findings suspicious for malignancy. Palpable painful foci in the upper outer bilateral breasts show no definite ultrasonographic correlate, nor mammographic correlate on review of the recent mammogram. Recommend clinical management. Otherwise, recommend resuming routine annual mammography. ASSESSMENT: BI-RADS 1: Negative RECOMMENDATION: 1. Patient should be managed based on the clinical impression. Decision to proceed with biopsy should be based on clinical grounds and degree of clinical concern. 2. Otherwise, routine annual screening mammography. This patient's information was entered into a reminder system with a target due date for their next mammogram. Dictated By: Jaleel Hayes MD Signed By: <Electronically signed by Jaleel Hayes MD in OV> 01/20/24 1601 DD/ 1440 TD/TT: Lead Burner Supervisor: Assessment & Plan Assessment & Plan (1) History of endometrial ablation: Code(s): Z98.890 - Other specified postprocedural states Category: Surgical (2) Well woman exam with routine gynecological exam: Code(s): Z01.419 - Encounter for gynecological examination (general) (routine) without abnormal findings Category: Medical (3) Cervical cancer screening: Comment: (has remote hx of abnormal),07/02/2022 Pap is negative with negative HPV; pap done 07/06/24- Code(s): Z12.4 - Encounter for screening for malignant neoplasm of cervix Category: Medical (4) At high risk for breast cancer: Comment: The my risk genetic testing results were reviewed with the patient and a copy of the report provided to the patient. She has no clinically significant mutations and no variance of uncertain significance identified on her genetic testing. She remains in a high risk category based on her Tyrer-Cuzick score of 28.5% r emaining lifetime breast cancer risk. Based on this core she should continue monthly breast self examinations, twice yearly clinical breast examinations, yearly mammogram and MRI of bilateral breasts. She expressed understanding and agrees with the plan. Code(s): Z91.89 - Other specified personal risk factors, not elsewhere classified Category: Medical Plan -----Discussed in this visit the following: healthy balanced diet, regular and consistent exercise, getting recommended health screens, doing the best she can for her particular health concerns, kegel exercises, pap smear screening and followup recommendations, mammography screening and SBE, normal changes in cycles in her life stage--- . Reviewed her history and past results and recommendations in detail. Pap smear was done because of her remote history of abnormal Pap in the past. If this 1 is negative she might be able to revert to every 5 year Paps. She is getting her yearly mammograms I did recommend that she consider checking in with Dr. Stern about the recommendations that were in the chart from 2020 getting MRIs and other follow-up because of her high-risk status. She is very well aware of her risk and she is very mindful.. She does exercise though she is not running anymore. She sometimes gets toe cramps she is trying to stay very well hydrated suggested consideration of adding extra magnesium when necessary she does various stretches . See her in 1 year though if she does not feel a need to be seen next year at least she knows when further evaluation would be recommended she is going to continue with her recommended yearly mammograms and follow-up with Dr. Stern about whether not to get MRIs. She sees her [id number] for PCC care. Coding Level of Care Code Est Pt Prev Care 40-64y(06002) Diagnoses History of endometrial ablation Z98.890 Well woman exam with routine gynecological exam Z01.419 Cervical cancer screening Z12.4 At high risk for breast cancer Z91.89
[2024-07-06 09:55] VITALS: BP 116/68; BMI 19.5
== END 2024-07-06 11:03 | disposition home or self-care (01) ==
PROVIDERS: PCP Internal Medicine; Visit Provider Advanced Practice Midwife
DX: Z01.419 Encounter for gynecological examination (general) (routine) without abnormal findings (principal); Z91.89 Other specified personal risk factors, not elsewhere classified
CPT/HCPCS: 99396

== ENCOUNTER 2024-07-06 09:46 | Outpatient (REF) | payer BC, SELFPAY ==
[2024-07-07 11:33] LABS: CT PCR NOT DETECTED (Not Detect.); NG PCR NOT DETECTED (Not Detect.)
[2024-07-07 11:47] LABS: Bacterial Vaginosis PCR NEGATIVE (Negative); Candida Group PCR NOT DETECTED (Not Detect); Candida glab krusei PCR NOT DETECTED (Not Detect); Trichomonas vaginalis PCR NOT DETECTED (Not Detect)
[2024-07-12 11:15] LABS: HPV mRNA E6/E7 Not Detected (Not Detected)
== END 2024-07-06 09:47 | disposition home or self-care (01) ==
LOC: HO.LAB 09:46
PROVIDERS: PCP Internal Medicine; Visit Provider Advanced Practice Midwife
DX: N89.8 Other specified noninflammatory disorders of vagina (principal); Z01.419 Encounter for gynecological examination (general) (routine) without abnormal findings
CPT/HCPCS: 0352U; 36415; 87491; 87591; 87624; 88175

== ENCOUNTER 2025-01-18 09:04 | Outpatient (REF) | payer BC, SELFPAY ==
--- OUTSIDE RECORDS SUMMARY | 2025-01-18 09:52 | XMS_ITS | Clinical Summary ---
Author Organization [facility] Address [address] [place] [address] Phone Care Team Providers Care Feed Manager Name Role Phone Unavailable Primary Care Provider Unavailabl e Immunizations Immunization Administration Dates Next Due DTP 08/30/1986, 3,03/08/1982,1981,1981 Hep B, ped/adol 10/06/2001,07/30/2000,06/19/2000 MMR 04/17/1994,12/13/1982 OPV 08/30/1986, 3,03/08/1982,1981,1981 Td (adult) (Tenivac), 5 Lf t etanus toxoid, PF, adsorbed 08/08/1997 Social History Tobacco Use Types Packs/Day Years Used Date Smoking Tobacco: Never Assessed Comments Unknown Sex and Gender Information Value Date Recorded Sex Assigned at Not on file Legal Sex Female 3:39 PM EDT Gender Identity Not on file Sexual Orientation Not on file Plan of Treatment Health Maintenance Due Date Last Done Comments Varicella Vaccines (1 of 2 - 13+ 2-dose series) 1994 DTaP,Tdap,and Td Vaccines (6 - Tdap) 08/09/1997 08/08/1997, 08/30/1986, 06/05/1983, Additional history exists Hepatitis B Vaccines (3 of 3 - 3-dose series) 12/01/2001 10/06/2001, 07/30/2000, 06/19/2000 Influenza Vaccines (#1) 2024 COVID-19 Vaccine ( - season) 2024 IPV Vaccines Completed 08/30/1986, 05/24, 03/08/1982, Additional history exists MMR Vaccines Completed 04/17/1994, 12/13/1982 HIB Vaccines Aged Out No longer eligi ble based on patient's age to complete this topic HPV Vaccines Aged Out No longer eligi ble based on patient's age to complete this topic Hepatitis A Vaccines Aged Out No long er eligible based on patient's age to complete this topic Men B Vaccine Aged Out No longer elig ible based on patient's age to complete this topic Meningococcal Vaccine Aged Out No lynda gagan eligible based on patient's age to complete this topic Pneumococcal Vaccine Aged Out No long er eligible based on patient's age to complete this topic
== END 2025-01-18 09:05 | disposition home or self-care (01) ==
LOC: HO.MAMMO 09:04
PROVIDERS: PCP Internal Medicine; Visit Provider Internal Medicine
DX: Z12.31 Encounter for screening mammogram for malignant neoplasm of breast (principal)
CPT/HCPCS: 77063; 77067

== ENCOUNTER → 2025-01-18 09:15 | Outpatient (BNV) | payer BC, SELFPAY | PROVIDERS: PCP Internal Medicine; Visit Provider Internal Medicine | DX: Z12.31 Encounter for screening mammogram for malignant neoplasm of breast (principal) | CPT/HCPCS: 77063; 77067 ==

== ENCOUNTER 2025-02-16 10:01 | Outpatient (REF) | payer BC, SELFPAY ==
[2025-02-17 23:13] LABS: Follicle Stimulating Hormone 26.3 mIU/mL
== END 2025-02-16 10:02 | disposition home or self-care (01) ==
LOC: HO.LAB 10:01
PROVIDERS: PCP Internal Medicine; Visit Provider Advanced Practice Midwife
DX: N95.1 Menopausal and female climacteric states (principal)
CPT/HCPCS: 36415; 83001

== ENCOUNTER 2025-02-28 15:10 | Outpatient (AMB) | payer BC, SELFPAY ==
--- NOTE | 2025-02-28 15:10 | A.OFFVIS_ITS ---
Intake Visit Reasons: Labs results Allergies pitted fruit Allergy (Unknown, Uncoded 02/28/25 15:10) hives SEASONAL ALLERGIES Allergy (Unknown, Uncoded 02/28/25 15:10) UNKOWN seasonal allergies Allergy (Unknown, Uncoded 02/28/25 15:10) Hives Is last menstrual period known: No HPI HPI Labs results: Details: this is a tele visit to discuss patient's FSH results. She has been having kimber menopausal symptoms consistent with brain fog disruptions to her sleep joints hurting etc. she had an endometrial ablation years ago so she has been amenorrheic for years. She was feeling like something was off and not quite right so she spoke with a friend who suggested she get her hormones checked and so that is why she requested the testing. I reviewed the results which definitely show that she is in the perimenopause it range. In addition she asked her mother who is now 80 when she went through menopause and her mother said it was in the 40s but she does not remember when remember the exact year. patient is in the midst still of getting workup for cardiac symptoms and we will be seeing a neurologist in [place] in the fall which is a long pending referral. [facility] Surgical History H/O breast biopsy History of endometrial ablation History of wisdom tooth extraction Family History Mother Colon cancer, Onset Age: 60 Maternal Aunt Breast cancer, Onset Age: 50 Ovarian cancer, Onset Age: 57 Father Melanoma, Onset Age: 75 Brother Melanoma, Onset Age: 25 Social History Alcohol intake: current Alcohol intake frequency: holidays/special occasions only Patient Tobacco Use Status: Never used Tobacco Female Reproductive History Menstrual Age of Menarche: 14 control method: none Total pregnancies: 2 Full term: 2 Telehealth Telehealth Telehealth Platform: Telephone Location of provider rendering services: practice address Location of patient: address on file Patient Identification confirmed using: Name, : Yes Telehealth method: voice only Patient verbally consented to treatment: Yes Patient verbally consented to billing insurance company: Yes Patient informed of any privacy concerns related to visit: Yes Minutes spent on Phone/Video with Pt.: 20 ( plus chart review and charting) Results Reviewed Results Reviewed: Name: Mohini Hutton Age/Sex: 44/F : 1980 [id number] Unit#: [id number] Attend Dr: Nighat Reyes CNM Re02/16/25 Status: DEP REF Location: .LAB Disch: SPEC : [id number] TA: 02/16/25 STATUS: COMP REQ : [id number] RECD: 02/16/[address]: Nighat Reyes CNM COMP: 02/17/25 ENTERED: 02/16/[address]: Hamilton Nagel MD ORDERED: FSH Test Result Flag Reference FSH 26.3 mIU/mL Reference Range Follicular Phase 2.5-10.2 Mid-cycle Peak 3.1-17.7 Luteal Phase 1.5- 9.1 Postmenopausal 23.0-116.3 THIS TEST WAS PERFORMED AT: [employer] [address] [place] [phone] EMPERATRIZ RDZ MD END OF REPORT Assessment & Plan Assessment & Plan (1) Perimenopausal symptoms: Code(s): N95.1 - Menopausal and female climacteric states Category: Medical (2) At high risk for breast cancer: Comment: The my risk genetic testing results were reviewed with the patient and a copy of the report provided to the patient. She has no clinically significant mutations and no variance of uncertain significance identified on her genetic testing. She remains in a high risk category based on her Tyrer-Cuzick score of 28.5% remaining lifetime breast cancer risk. Based on this core she should continue monthly breast self examinations, twice yearly clinical breast examinations, yearly mammogram and MRI of bilateral breasts. She expressed understanding and agrees with the plan. Code(s): Z91.89 - Other specified personal risk factors, not elsewhere classified Category: Medical (3) History of endometrial ablation: Code(s): Z98.890 - Other specified postprocedural states Category: Medical (4) Early menopause occurring in patient age younger than 45 years: Code(s): E28.319 - Asymptomatic premature menopause Category: Medical Plan this is a tele visit to discuss patient's FSH results. She has been having kimber menopausal symptoms consistent with brain fog disruptions to her sleep joints hurting etc. she had an endometrial ablation years ago so she has been amenorrheic for years. She was feeling like something was off and not quite right so she spoke with a friend who suggested she get her hormones checked and so that is why she requested the testing. I reviewed the results which definitely show that she is in the perimenopause it range. In addition she asked her mother who is now 80 when she went through menopause and her mother said it was in the 40s but she does not remember when remember the exact year. patient is in the midst still of getting workup for cardiac symptoms and we will be seeing a neurologist in [place] in the fall which is a long pending referral. I reviewed her symptoms her labs which are in keeping with kimber menopausal menopausal changes. Discussed that not everything necessarily can be tied to menopause but many things can discussed lifestyle changes and her healthy patterns in general and discussed remaining attuned to all the things she does to support her health. . I tried to place an actual referral in the chart to provider's at [facility] who were specializing in the menopause but I could not place the exact referral that I wished to so I verbally gave her the information and recommend she consider contacting the provider. It is a provider she has experience with in the past our former colleague.She will call her herself Coding Level of Care Code Tele Est Pt Level 3 (65176) Diagnoses Perimenopausal symptoms N95.1 At high risk for breast cancer Z91.89 History of endometrial ablation Z98.890 Early menopause occurring in patient age younger than 45 years E28.319 Time Spent (min) 35
--- OUTSIDE RECORDS SUMMARY | 2025-02-28 17:59 | XMS_ITS | Clinical Summary ---
Author Organization [facility] Address [address] [place] [address] Phone Care Team Providers Care Supervisor [employer] Name Role Phone Unavailable Primary Care Provider [...]
== END 2025-03-01 08:24 | disposition home or self-care (01) ==
LOC: HO.HWS 15:10
PROVIDERS: PCP Internal Medicine; Visit Provider Advanced Practice Midwife
DX: N95.1 Menopausal and female climacteric states (principal)
CPT/HCPCS: 99213

== ENCOUNTER → 2025-02-28 15:10 | Outpatient (BNVA) | payer BC, SELFPAY | PROVIDERS: PCP Internal Medicine; Visit Provider Advanced Practice Midwife ==

== ENCOUNTER 2025-07-20 14:09 | Outpatient (AMB) | payer BC, SELFPAY ==
--- NOTE | 2025-07-20 14:10 | MHC.OFFVIS ---
Vital Signs 07/20/25 14:11 Height 5 ft 9 in Weight 127 lb 13.89 oz BMI 18.9 BP 116/70 Blood Pressure Location Lt brachial Position Sitting Pulse 73 Intake Visit Reasons: f/up- left arm numness Intake Note: Follow-up ekg Rn Occupational Required: No Allergies pitted fruit Allergy (Unknown, Uncoded 02/28/25 15:10) hives SEASONAL ALLERGIES Allergy (Unknown, Uncoded 02/28/25 15:10) UNKOWN seasonal allergies Allergy (Unknown, Uncoded 02/28/25 15:10) Hives Medication List - Last Reconciled 07/20/25 by Tony Montiel NP No Known Home Meds HPI Comments Details: This is a 44-year-old female patient who has been previously seen for syncopal episode and had a tilt-table test that confirmed vasovagal syncope. Patient has been referred out to Neurology for dysautonomia however, patient has been unable to get an appointment with them in [place] and was finally able to secure an appointment in August with the help of our office. Patient reports that on Friday, patient had an episode of a syncopal episode with no prodromal symptoms. Patient states that she was sitting on the passenger seat looking at her phone and all of a sudden her noted that the phone fell. Patient states that she was aware of some conversation while she was still passed out. After patient regained consciousness, patient noted left-sided weakness and footdrop. Patient notes that this was new for her with her syncope episodes. Patient denies any bowel or bladder incontinence. Family urged patient to go to the emergency room but patient never went. Next morning patient states that her symptoms resolved. Patient is otherwise denying any exertional chest pain, shortness of breath, palpitations, orthopnea, PND, or leg edema. Patient denies any recurrent of that symptom. Patient says that in the past she had an EEG which was negative but otherwise never followed up with the neurology. Patient is not on any medications at this time. [facility] Surgical History H/O breast biopsy History of endometrial ablation History of wisdom tooth extraction Family History Mother Colon cancer, Onset Age: 60 Maternal Aunt Breast cancer, Onset Age: 50 Ovarian cancer, Onset Age: 57 Father Melanoma, Onset Age: 75 Brother Melanoma, Onset Age: 25 Social History Alcohol intake: current Alcohol intake frequency: holidays/special occasions only Patient Tobacco Use Status: Never used Tobacco Female Reproductive History Menstrual Age of Menarche: 14 Review of Systems Const Denies chills, Denies fatigue, Denies fever(s), Denies frequent falls, Denies weakness, Denies weight gain and Denies weight loss ENT Denies dizziness Card Denies chest pain, Denies leg edema, Denies lightheadedness, Denies palpitations, Denies dyspnea, Denies dyspnea on exertion, Denies orthopnea and Denies other (loss of consciousness) Resp Denies cough, Denies dyspnea and Denies dyspnea on exertion GI Denies hematochezia and Denies change in stool character Musc Denies abnormal gait, Denies muscle weakness, Denies numbness, Denies radiating pain into limb and Denies tingling Neuro Denies abnormal gait, Denies dizziness, Denies frequent falls, Denies numbness, Denies tingling and Denies weakness Endo Denies fatigue and Denies palpitations Physical Exam Vital Signs: Last Vital Signs Pulse 73 07/20/25 14:11 BP 116/70 07/20/25 14:11 BMI result Body Mass Index 18.9 Const General: cooperative, healthy appearing, comfortable and no acute distress Orientation/consciousness: patient oriented x3 HEENT Head: Yes normal to inspection Neck Neck: Yes normal visual inspection, Yes trachea midline and Yes supple Chest Chest palpation & inspection: normal inspection of the chest Resp Effort & Inspection: normal respiratory effort Auscultation: clear to auscultation bilaterally, no crackles, no rales, no rhonchi and no wheezes Cardio Jugular venous distension: no JVD Palpation: normal PMI Rate: regular rate Rhythm: regular rhythm Heart sounds: S1 normal heart sound present, S2 normal heart sound present, no click, no gallops, no murmurs and no rubs Peripheral pulses: Peripheral pulses 2+ throughout GI Inspection: Yes normal to inspection Palpation (GI): Soft to palpation Auscultation: normal bowel sounds Skin General skin exam: no rashes or lesions noted Neuro General: patient oriented x3 Extrem General: Yes normal to inspection, No no pedal edema and No calf tenderness Psych Appearance: grossly normal Mental Status: mental status grossly normal Speech and movement: Normal speech and movement present Office Procedures EKG Details: EKG today showed normal sinus rhythm, rate 73 beats per minute, [place] SD, [place]. [id number]-Tccoudgobkruedjsj, Complete Assessment & Plan Assessment & Plan (1) Syncope: Code(s): R55 - Syncope and collapse Category: Medical Plan: EKG today was normal. Given her ongoing syncope episodes and her recent left-sided weakness, concerning for TIAs. Patient has a an upcoming neurology appointment at [facility] in [place]. Meanwhile, we will get a 30 day even monitor to assess for any potential arrhythmias or AFib. We will also get an echo to assess for LV systolic and diastolic function. Further treatment based on findings. Blood pressure today is within normal limits. Advised adequate hydration, heart healthy diet, avoiding stimulants like alcohol or caffeinated beverages, and advised not to drive until further evaluation for safety. We will follow up after completing the test. In the interim, patient will call the office with any concerns or change in symptoms. Discussed in detail the red flags warranting hospital visit. Patient verbalizes understanding. This note was generated using voice recognition software. While every effort has been made to ensure accuracy and proper leasing associate, there may be occasional errors that could affect the content or meaning of the described symptoms. Orders: Orders ECG 30 day event monitor Today R55 - Syncope and collapse AMB EKG-In Office Today R55 - Syncope and collapse CA echo transthoracic complete Today R55 - Syncope and collapse Coding Level of Care Code Est Pt Level 4 (51815) Complex EM visit Add On G2211 Diagnoses Syncope R55 CPT Codes EKG - CPT: 33613-Orneeolgocaulkfeo, Complete ([id number]) Time Spent (min) 33 Comment Time spent in reviewing the chart, test results, assessment, counseling and documentation.
[2025-07-20 14:11] VITALS: BP 116/70; PULSE 73; BMI 18.9
--- OUTSIDE RECORDS SUMMARY | 2025-07-20 15:11 | XMS_ITS | Clinical Summary ---
Author Organization [facility] Address [address] [place] [address] Phone Care Team Providers Care Votator Machine Operator Name Role Phone Unavailable Primary Care Provider [...] - 3-dose series) 12/01/2001 10/06/2001, 07/30/2000, 06/19/2000 HPV Vaccines (1 - 3-dose SCDM series) 2008 COVID-19 Vaccine ( - season) 2024 Influenza Vaccines (#1) 2025 IPV Vaccines Completed 08/30/1986, 05/24, 03/08/1982, Additional [...]
--- OUTSIDE RECORDS SUMMARY | 2025-07-20 15:11 | XMS_ITS | Encounter Summary ---
Author Organization [facility] Address [address] [place] [address] Phone Care Team Providers Care Incident Manager Name Role Phone Hamilton Nagel MD Primary Care Provider [phone] Hamilton Nagel MD Unavailable [phone] Encounter Details Date Type Department Care Team (Latest Contact Info) Description 12/21/2019 Transcribe Orders [facility] [address] [place] [id number] Hamilton Nagel MD [address] [place] [id number] Recurrent syncope (Primary Dx) Social History Tobacco Use Types Packs/Day Years Used Date Smoking Tobacco: Never Smokeless Tobacco: Never Comments Unknown Sex and Gender Information Value Date Recorded Sex Assigned at Not on file Legal Sex Female 9:20 PM EDT Gender Identity Not on file Sexual Orientation Not on file documented as of this encounter Plan of Treatment Upcoming Encounters Date Type Department Care Team (Late st Contact Info) Description 09/07/2025 3:00 PM EDT Office Visit [facility], Department of Neurology [address] [place] [address] Julia Mattson MD [address] [place] [address] [email or web address] documented as of this encounter Results * 5-HIAA, 24 hr urine (12/24/2019 8:14 AM EST) TIMED URINE 5HIAA 3.1 <=7.0 mg/24 h [facility] DPT OF LAB MED AND PAT+ TOTAL VOLUME 1,950 mL [facility] DPT OF LAB MED AND PAT+ Comment: (NOTE) ADDITIONAL INFORMATION Liquid Chromatography-Tandem Mass Spectrometry (LC-MS/MS). Values obtained from different assay methods or kits may be different and cannot be used interchangeably. The results cannot be interpreted as absolute evidence for the presence or absence of malignant disease. This test was developed and its performance characteristics determined by [facility] in a manner consistent with CLIA requirements. This test has not been cleared or approved by the U.S. Food and Drug Administration. COLLECTION DURATION 24 h [facility] DPT OF LAB MED AND PAT+ Urine (Urine) 12/24/2019 8:1 4 AM EST 12/24/2019 8:35 AM EST us Hamilton Nagel MD URINE ORDERABLES Final Res ult [facility] DPT OF LAB MED AND PAT+ [address] [place] [address] * Chromogranin A (12/21/2019 11:57 AM EST) CHROMOGRANIN A 50 <93 ng/mL [facility] [place] Comment: (NOTE) ADDITIONAL INFORMATION This test was developed and its performance characteristics determined by [facility] in a manner consistent with CLIA requirements. This test has not been cleared or approved by the U.S. Food and Drug Administration. The testing method is a homogeneous time-resolved immunofluorescent assay. Values obtained with different assay methods or kits may be different and cannot be used interchangeably. Test results cannot be interpreted as absolute evidence for the presence or absence of malignant disease. Blood 12/21/2019 11:5 7 AM EST 12/21/2019 12:17 PM EST Hamilton Nagel MD LAB BLOOD ORDERABLES Final Result Performing Organization Address [facility] de Phone Number [facility] MED/PATH [address] [place] [address] * SEROTONIN, SERUM (12/21/2019 11:57 AM EST) SEROTONIN, SERUM 64 <=230 NG/ML [facility] MED/PATH [facility] Comment: (NOTE) ADDITIONAL INFORMATION This test was developed and its performance characteristics determined by [facility] in a manner consistent with CLIA requirements. This test has not been cleared or approved by the U.S. Food and Drug Administration. Blood 12/21/2019 11:5 7 AM EST 12/21/2019 12:17 PM EST Hamilton Nagel MD LAB BLOOD ORDERABLES Final Result Performing Organization Address [facility] de Phone Number [facility] MED/[facility] [address] [place] [address] documented in this encounter Visit Diagnoses Diagnosis Recurrent syncope- Primary documented in this encounter Additional Health Concerns Assessment Noted Time PHQ-2 Depression Total Score: 0 09/07/20 19 4:21 PM EDT documented as of this encounter Care Teams Incident Manager Relationship Specialty Start Date End Date Hamilton Nagel MD [address] [place] [address] PCP - General 09/08/17 Hamilton Nagel MD [address] [place] [address] 09/08/17 documented as of this encounter Additional Source Comments The information contained in this document represents components of the legal health record. It is not the complete legal health record.[facility]
--- OUTSIDE RECORDS SUMMARY | 2025-07-20 15:11 | XMS_ITS | Clinical Summary ---
Author Organization [facility] Address [address] [place] [address] Phone Care Team Providers Care Beef Cattle Grazier Name Role Phone Hamilton Nagel MD Primary Care Provider [phone] Hamilton Nagel MD Unavailable [phone] Allergies No known active allergies Medications loratadine (CLARITIN) 10 mg tablet Take 10 mg by mouth as needed. Active fluticasone propionate (FLONASE) 50 mcg/actuation nasal spray 1 spray by Nasal route as needed. Active propranolol (INDERAL) 10 MG immediate release tablet Take 10 mg by mouth 2 (two) times a day. Active therapeutic multivitamin tablet Take 1 tablet by mouth daily. Active Active Problems No known active problems Social History Tobacco Use Types Packs/Day Years Used Date Smoking Tobacco: Never Smokeless Tobacco: Never Education Answer Date Recorded Are you interested in more education? Not on ernie e 03/21/2023 Are you concerned about learning? Not on file 03/21/2023 No 03/21/2023 No 03/21/2023 Digital Access Answer Date Recorded No 04/18/2023 No 04/18/2023 No 04/18/2023 Reliable internet access at home? Not on file 04/18/2023 Device with a working camera? Not on file Comments Unknown Sex and Gender Information Value Date Recorded Sex Assigned at Not on file Legal Sex Female 9:20 PM EDT Gender Identity Not on file Sexual Orientation Not on file Last Filed Vital Signs Vital Sign Reading Time Taken Comments Blood Pressure 116/68 09/07/2019 4:21 PM EDT Pulse 69 09/07/2019 4:21 PM EDT Temperature - - Respiratory Rate - - Oxygen Saturation 99% 04/27/2019 1:28 PM EDT Inhaled Oxygen Concentration - - Weight 59.9 kg (132 lb) 09/07/2019 4:21 PM EDT Height - - Body Mass Index - - Plan of Treatment Upcoming Encounters Date Type Department Care Team (Late st Contact Info) Description 09/07/2025 3:00 PM EDT Office Visit [facility], Department of Neurology [address] [place] [address] Julia Mattson MD [address] [place] [address] [email or web address] Health Maintenance Due Date Last Done Comments HEPATITIS C SCREENING 1999 HIV ONE-TIME SCREENING (18-6 5 YEARS) 1999 PAP SMEAR 2002 Adult Td,Tdap Booster 08/08/2007 08/08/1997 DEPRESSION SCREENING 09/07/2020 09/07/2019 MAMMOGRAM 2021 COVID-19 VACCINE ( - 2023-2 5 season) 2024 INFLUENZA VACCINE (#1) 2025 SMOKING STATUS SCREENING (On ce After 26 Yrs) Completed 09/07/2019 HEPATITIS A VACCINES Aged Out No long er eligible based on patient's age to complete this topic HIB VACCINES Aged Out No longer eligi ble based on patient's age to complete this topic MENINGOCOCCAL VACCINES (ACWY) Aged Out No longer eligible based on patient's age to complete this topic MENINGOCOCCAL VACCINES (B) Aged Out N o longer eligible based on patient's age to complete this topic PNEUMOCOCCAL VACCINES (0-49 years) Aged Out No longer eligible based on patient's age to complete this topic Medical Devices Not on file [facility] [place] [address] [place] [address] HMO POS PPO EPO BLUE [facility] PPO EPO [facility] PPO EPO [facility] HMO POS Member Subscriber Plan / Payer (Ef fective 2016-Present) Name:Anni, Tc Relation to Subscriber:Self Name:TC HUTTON E Payer ID:[id number] (NAIC) Type:HMO Address: [address] PPO EPO [facility] PPO EPO [facility] HMO POS Member Subscriber Plan / Payer (Ef fective 2016-Present) Name:Tc Hutton Relation to Subscriber:Self Name:TC HUTTON E Payer ID:[id number] ([facility]) Type:HMO Address: [address] [place] [address] [place] [address] [place] [address] [place] [address] PPO EPO [facility] [place] [address] [place] [address] PPO EPO HMO POS HMO POS HMO POS HMO POS HMO POS HMO POS HMO POS [place] [address] [place] [address] HMO POS Care Teams Beef Cattle Grazier Relationship Specialty Start Date End Date Hamilton Nagel MD [address] [place] [address] PCP - General 09/08/17 Hamilton Nagel MD [address] [place] [address] 09/08/17 Additional Source Comments The information contained in this document represents components of the legal health record. It is not the complete legal health record.[facility]
--- OUTSIDE RECORDS SUMMARY | 2025-07-20 15:11 | XMS_ITS | Encounter Summary ---
Author Organization [facility] Address [address] [place] [address] Phone Care Team Providers Care Irish Moss Gatherer Name Role Phone Hamilton Nagel MD Primary Care Provider [phone] Hamilton Nagel MD Unavailable [phone] Encounter Details Date Type Department Care Team (Late Contact Info) Description 04/27/2019 Transcribe Orders [facility] Radiology [address] [place] [address] Sai Blanco [address] [place] [address] [email or web address] Social History Tobacco Use Types Packs/Day Years Used Date Smoking Tobacco: Never Smokeless Tobacco: Never Comments Unknown Sex and Gender Information Value Date Recorded Sex Assigned at Not on file Legal Sex Female 9:20 PM EDT Gender Identity Not on file Sexual Orientation Not on file documented as of this encounter Plan of Treatment Upcoming Encounters Date Type Department Care Team (Late Contact Info) Description 09/07/2025 3:00 PM EDT Office Visit [facility], Department of Neurology [address] [place] [address] Julia Mattson MD [address] [place] [address] [email or web address] documented as of this encounter Results * US Chest Outside (No Interpretation) (04/27/2019 8:07 AM EDT) Narrative [facility] - 04/27/2019 8:07 AM EDT This study is for PACS storage only and not for interpretation. Steve Rivas MD IMG OUTSIDE IMAGING W/OUT IN TERPRETATION Final Result [email or web address]_[email or web address] documented in this encounter Visit Diagnoses Not on filedocumented in this encounter Additional Health Concerns Assessment Noted Time PHQ-2 Depression Total Score: 0 04/27/20 19 1:29 PM EDT documented as of this encounter Care Teams Irish Moss Gatherer Relationship Specialty Start Date End Date Hamilton Nagel MD [address] [place] [address] PCP - General 09/08/17 Hamilton Nagel MD [address] [place] [address] 09/08/17 documented as of this encounter Additional Source Comments The information contained in this document represents components of the legal health record. It is not the complete legal health record.[facility]
--- OUTSIDE RECORDS SUMMARY | 2025-07-20 15:11 | XMS_ITS | Encounter Summary ---
Author Organization [facility] Address [address] [place] [address] Phone Care Team Providers Care Equipment Operat0R Name Role Phone Hamilton Nagel MD Primary Care Provider [phone] Hamilton Nagel MD Unavailable [phone] Encounter Details Date Type Department Care Team (Latest Contact Info) Description 05/10/2019 Transcribe Orders [facility] [address] [place] [address] Steve Rivas MD [address] [place] [address] [email or web address] Syncope and collapse (Primary Dx); Sinus tachycardia Social History Tobacco Use Types Packs/Day Years [...] Description 09/07/2025 3:00 PM EDT Office Visit [facility], Department of Neurology [address] [place] [address] Julia Mattson MD [address] [place] [address] [email or web address] documented as of this encounter Results * Metanephrines, 24 hr urine (05/11/2019 7:59 AM EDT) [facility] METANEPHRINE 114 mcg/24 h [facility] BETY/PATH [place] Comment: (NOTE) REFERENCE VALUE 30-180 (Normotensive) <400 (Hypertensive) TU NORMETANEPHRINE 216 mcg/24 h [facility] LAB MED/PATH [place] Comment: (NOTE) REFERENCE VALUE 111-419 (Normotensive) <900 (Hypertensive) TU TOTAL METANEPHRINE 330 mcg/24 h [facility] BETY/PATH [place] Comment: (NOTE) REFERENCE VALUE 149-535 (Normotensive) <1300 (Hypertensive) TOTAL VOLUME 2,600 mL [facility] [address] [facility] Comment: (NOTE) ADDITIONAL INFORMATION This test was developed and its performance characteristics determined by [facility] in a manner consistent with CLIA requirements. This test has not been cleared or approved by the U.S. Food and Drug Administration. COLLECTION DURATION 24 h [facility] BETY/PATH [address] KAUFFMAN FMET COMMENT Test component not applicable or not reported. [facility] LAB MED/PATH [place] Urine (Urine) 05/11/2019 7:5 9 AM EDT 05/11/2019 2:50 PM EDT us Steve Rivas MD URINE ORDERABLES Final Resul t [facility] LAB MED/PATH [place] [place] [address] [place] [address] * Cortisol AM (05/10/2019 9:21 AM EDT) CORTISOL AM 12.9 6.2 - 19.4 ug/dL [facility] Blood 05/10/2019 9:21 AM EDT 05/10/2019 9:55 AM EDT Steve Rivas MD LAB BLOOD ORDERABLES Final R esult [address] [address] documented in this encounter Visit Diagnoses Diagnosis Syncope and collapse- Primary Sinus tachycardia Other specified cardiac dysrhythmias documented in this encounter Additional Health Concerns Assessment Noted Time PHQ-2 Depression Total Score: 0 04/27/20 19 1:29 PM EDT documented as of this encounter Care Teams Equipment Operat0R Relationship Specialty Start Date End Date Hamilton Nagel MD [address] [place] [address] PCP - General 09/08/17 Hamilton Nagel MD [address] [place] [address] 09/08/17 documented as of this encounter Additional Source Comments The information contained in this document represents components of the legal health record. It is not the complete legal health record.[facility]
== END 2025-07-20 15:03 | disposition home or self-care (01) ==
LOC: HO.HCS 14:10
PROVIDERS: PCP Internal Medicine
DX: R55 Syncope and collapse (principal)
CPT/HCPCS: 93010; 99214

== ENCOUNTER → 2025-07-20 14:09 | Outpatient (BNVA) | payer BC, SELFPAY | PROVIDERS: PCP Internal Medicine | DX: R55 Syncope and collapse (principal) | CPT/HCPCS: 93005 ==

== ENCOUNTER → 2025-08-09 13:03 | Outpatient (REF) | payer BC, SELFPAY ==
--- NOTE | 2025-08-09 14:51 | CA_ITS ---
Transthoracic Echocardiogram Patient (Last, First, Middle): Mohini Hutton E Gender: F Date of : 1980 Age: 44 Procedure Date: 08/09/2025 Procedure Type: Transthoracic Echocardiogram Location: OP Height: 175.26 cm Weight: 57.61 kg BSA: 1.70 m2 Heart Rate: bpm BP: 112 / 68 mmHg Grubber: TO Referring MD: Tony Montiel NP Symptoms: R55 - Syncope and collapse Study Quality: Adequate ECG Rhythm: Sinus Conclusions: - The left ventricular systolic function is normal. The calculated ejection fraction is 58% by biplane method. - Bubble study is positive during rest and Valsalva. - No obvious valvular pathology seen on this study. - (requested to sign again) Findings Left Ventricle Normal left ventricular cavity size. There is normal left ventricular wall thickness. The left ventricular systolic function is normal. The calculated ejection fraction is 58% by biplane method. There is no evidence of regional wall motion abnormalities. LV peak GLS -21.3%. Right Ventricle Normal right ventricular cavity size and systolic function. Atria Both atria are normal in size. Bubble study is positive during rest and Valsalva. Aortic Valve There is a normal trileaflet aortic valve. There is no aortic valve stenosis. There is no aortic valve regurgitation. Mitral Valve The mitral valve appears normal. There is trace mitral valve regurgitation. There is no mitral valve stenosis. Pulmonic Valve The pulmonic valve is likely normal. Tricuspid Valve There is trace tricuspid valve regurgitation. There is no evidence of pulmonary hypertension. Great Vessels The sinuses of valsalva is normal in size. Venous The inferior vena cava is mildly dilated and collapses greater than 50% with inspiration. Pericardium/Pleural There is no evidence of pericardial effusion. Prior Study Comparison No change compared to prior study dated: 04/01/2019. Recommendations, Care & Conclusions No obvious valvular pathology seen on this study. Measurements 2D Linear Measurements IVSd: 0.82 0.6-0.9/0.6-1.0 cm LVIDd: 4.31 3.9-5.3/4.2-5.9 cm LVIDs: 2.90 2.0-3.6 cm LVPWd: 0.88 0.7-1.1 cm LA Diam: 2.62 2.7-3.8/3.0-4.0 cm LAIDs Index: 1.54 1.5-2.3 cm/m2 LV Mass: 114.60 67-162/88-224 g LVOT Diam: 2.00 3.0+(-)1.3 cm 2D Volumes RA ESV A/L: 10.40 19-21 ML/M2 2D Systolic Function EF 4C: 56.50 >55% EF 2C: 58.20 >55% EF BiP: 58.00 >55% Mitral Valve MV Pk E: 0.81 MV PK A: 0.33 MV Decel Time: 179.00 E/A: 2.45 E'Lateral: 14.31 E'Medial: 10.58 E/E' Med: 7.65 E/E' Lat: 5.66 Aortic Valve AoV Pk Lucas: 1.32 AoV VTI: 0.27 AoV Pk Grad: 7.00 Aov Mn Grad: 4.10 VIKA Cont.VTI: 2.43 LVOT LVOT VTI: 0.21 LVOT Pk Grad: 4.00 LVOT Mn Grad: 1.70 LVOT Diam: 2.00 Diastolic Function MV Pk E: 0.81 MV Pk A: 0.33 E/A: 2.45 E'Medial: 10.58 E/E' Med: 7.65 E' Laterial: 14.31 E/E' Lat: 5.66 Right Ventricle TAPSE (mm): 23.70 TVS' Lucas: 12.00 Tricuspid Valve TR Pk Lucas: 2.08 TR Pk Grad: 17.30 RA Press: 3.00 RVSP: 20.00 Great Vessels Aorta Sinus of Valsalva: 2.99 2.0-3.5 cm Updated in Other Vendor System with Status of Final Sergei Trujillo MD electronically signed on 08/16/2025 2:28:21 PM with status of Final
--- OUTSIDE RECORDS SUMMARY | 2025-08-09 17:00 | XMS_ITS | Encounter Summary ---
Author Organization [facility] Address [address] [place] [address] Phone Care Team Providers Care Student Name Role Phone Hamilton Nagel MD Primary Care Provider [phone] Hamilton Nagel MD Unavailable [phone] Encounter Details Date Type Department Care Team (Late Contact Info) Description 04/27/2019 Transcribe Orders [facility] Radiology [address] [place] [address] Sai Blanco [address] [place] [address] [email or web address] Social History Tobacco Use Types Packs/Day [...] Description 09/07/2025 3:00 PM EDT Office Visit [facility], Department of Neurology [address] [place] [address] Julia Mattson MD [address] [place] [address] [email or web address] documented as of this encounter Results * [...] documented as of this encounter Care Teams Student Relationship Specialty Start Date End Date Hamilton Nagel MD [address] [place] [address] PCP - General 09/08/17 Hamilton Nagel MD [address] [place] [address] 09/08/17 documented as of this encounter Additional Source Comments The information contained in this document represents components of the legal health record. It is not the complete legal health record.[facility]
--- OUTSIDE RECORDS SUMMARY | 2025-08-09 17:00 | XMS_ITS | Encounter Summary ---
Author Organization [facility] Address [address] [place] [address] Phone Care Team Providers Care Client Support Coordinator Name Role Phone Hamilton Nagel MD Primary Care Provider [phone] Hamilton Nagel MD Unavailable [phone] Encounter Details Date Type Department Care Team (Latest Contact Info) Description 05/10/2019 Transcribe Orders [facility] [address] [place] [address] Steve Rivas MD [address] [place] [address] [email or web address] Syncope and collapse (Primary Dx); Sinus tachycardia [...] Description 09/07/2025 3:00 PM EDT Office Visit [facility], Department of Neurology [address] [place] [address] Julia Mattson MD [address] [address] [email or web address] [email or web address] [email or web address] documented as of this encounter Results * Metanephrines, 24 hr urine (05/11/2019 7:59 AM EDT) Pathologist [facility] TU METANEPHRINE 114 mcg/24 h [facility] MED/PATH [place] Comment: (NOTE) REFERENCE VALUE 30-180 (Normotensive) <400 (Hypertensive) TU NORMETANEPHRINE 216 mcg/24 h [facility] LAB MED/PATH [facility] Comment: (NOTE) REFERENCE VALUE 111-419 (Normotensive) <900 (Hypertensive) TU TOTAL METANEPHRINE 330 mcg/24 h [facility] BETY/PATH [place] Comment: (NOTE) REFERENCE VALUE 149-535 (Normotensive) <1300 (Hypertensive) TOTAL VOLUME 2,600 mL [facility] BETY/PATH [place] Comment: (NOTE) ADDITIONAL INFORMATION This test was developed and its performance characteristics determined by [facility] in a manner consistent with CLIA requirements. This test has not been cleared or approved by the U.S. Food and Drug Administration. COLLECTION DURATION 24 h [facility] LAB MED/PATH [address] KAUFFMAN FMET COMMENT Test component not applicable or not reported. [facility] LAB MED/PATH [place] Urine (Urine) 05/11/2019 7:5 9 AM EDT 05/11/2019 2:50 PM EDT us Steve Rivas MD URINE ORDERABLES Final Resul t [facility] LAB MED/PATH [address] [place] [address] * Cortisol AM (05/10/2019 9:21 AM EDT) CORTISOL AM 12.9 6.2 - 19.4 ug/dL [facility] Blood 05/10/2019 9:21 AM EDT 05/10/2019 9:55 AM EDT Steve Rivas MD LAB BLOOD ORDERABLES Final R esult [facility] [address] [place] [address] documented in this encounter Visit Diagnoses Diagnosis Syncope and collapse- Primary Sinus tachycardia Other specified cardiac dysrhythmias documented in this encounter Additional Health Concerns Assessment Noted Time PHQ-2 Depression Total Score: 0 04/27/20 19 1:29 PM EDT documented as of this encounter Care Teams Client Support Coordinator Relationship Specialty Start Date End Date Hamilton Nagel MD [address] [place] [address] PCP - General 09/08/17 Hamilton Nagel MD [address] [place] [address] 09/08/17 documented as of this encounter Additional Source Comments The information contained in this document represents components of the legal health record. It is not the complete legal health record.[facility]
--- OUTSIDE RECORDS SUMMARY | 2025-08-09 17:00 | XMS_ITS | Clinical Summary ---
Author Organization [facility] Address [address] [place] [address] Phone Care Team Providers Care Jumpbasting Armhole Baster Name Role Phone Hamilton Nagel MD Primary Care Provider [phone] Hamilton Nagel MD Unavailable [phone] Allergies No known active allergies Medications loratadine [...] Description 09/07/2025 3:00 PM EDT Office Visit [facility], Department of Neurology [address] [place] [address] Julia Mattson MD [address] [place] [address] [email or web address] Health Maintenance Due Date Last Done Comments HEPATITIS C SCREENING 1999 HIV ONE-TIME SCREENING (18-6 5 YEARS) 1999 PAP SMEAR 2002 Adult Td,Tdap Booster 08/08/2007 08/08/1997 DEPRESSION SCREENING 09/07/2020 09/07/2019 MAMMOGRAM 2021 INFLUENZA VACCINE (#1) 2025 COVID-19 VACCINE ( - 2023-2 5 season) 2025 SMOKING STATUS SCREENING (On ce After [...] topic Medical Devices Not on file [facility] PPO EPO HMO POS Member Subscriber Plan / Payer (Ef fective 2016-Present) Name:Tc Hutton Relation to Subscriber:Self Name:TC HUTTON Payer ID:[id number] ([facility]) Type:HMO Address: [address] PPO EPO BLUE [facility] PPO EPO ADELINA [facility] PPO EPO [facility] HMO POS PPO EPO [facility] PPO EPO [facility] HMO POS PPO EPO [facility] [place] [address] [place] [address] PPO EPO [facility] [place] [address] [place] [address] PPO EPO HMO POS [place] [address] HMO POS HMO POS HMO POS HMO POS [facility] HMO POS [facility] HMO POS [facility] HMO POS Care Teams Jumpbasting Armhole Baster Relationship Specialty Start Date End Date Hamilton Nagel MD [address] [place] [address] PCP - General 09/08/17 Hamilton Nagel MD [address] [place] [address] 09/08/17 Additional Source Comments The information contained in this document represents components of the legal health record. It is not the complete legal health record.[facility]
--- OUTSIDE RECORDS SUMMARY | 2025-08-09 17:00 | XMS_ITS | Encounter Summary ---
Author Organization [facility] Address [address] [place] [address] Phone Care Team Providers Care Fresh Work Inspector Name Role Phone Hamilton Nagel MD Primary Care Provider [phone] Hamilton Nagel MD Unavailable [phone] Encounter Details Date Type Department Care Team (Latest Contact Info) Description 12/21/2019 Transcribe Orders [facility] [address] [place] [address] Hamilton Nagel MD [address] [place] [address] Recurrent syncope (Primary Dx) Social History Tobacco [...] Description 09/07/2025 3:00 PM EDT Office Visit [facility], Department of Neurology [address] [place] [address] Julia Mattson MD [address] [place] [address] [email or web address] documented as of this encounter Results * 5-HIAA, 24 hr urine (12/24/2019 8:14 AM EST) TIMED URINE 5HIAA 3.1 <=7.0 mg/24 h [facility] DPT OF LAB MED AND PAT+ TOTAL VOLUME 1,950 mL [facility] DPT OF LAB MED AND PAT+ Comment: (NOTE) ADDITIONAL INFORMATION Liquid Chromatography-Tandem Mass Spectrometry (LC-MS/MS). Values obtained from different assay methods or kits may be different and cannot be used interchangeably. The results cannot be interpreted as absolute evidence for the presence or absence of malignant disease. This test was developed and its performance characteristics determined by [facility] in a manner consistent with CLIA requirements. This test has not been cleared or approved by the U.S. Food and Drug Administration. COLLECTION DURATION 24 h [facility] DPT OF LAB MED AND PAT+ Urine (Urine) 12/24/2019 8:1 4 AM EST 12/24/2019 8:35 AM EST us Hamilton Nagel MD URINE ORDERABLES Final Res ult [facility] DPT OF LAB MED AND PAT+ [address] [place] [address] * Chromogranin A (12/21/2019 11:57 AM EST) CHROMOGRANIN A 50 <93 ng/mL [facility]PATH [facility] [place] Comment: (NOTE) ADDITIONAL INFORMATION This test was developed and its performance characteristics determined by [facility] in a manner consistent with CLIA [...] BLOOD ORDERABLES Final Result Performing Organization Address [facility] de Phone Number [facility] LAB MED/PATH [address] [place] [address] * SEROTONIN, SERUM (12/21/2019 11:57 AM EST) SEROTONIN, SERUM 64 <=230 NG/ML [facility] LAB MED/PATH [facility]PERIOR Comment: (NOTE) ADDITIONAL INFORMATION This test was developed and its performance characteristics determined by [facility] in a manner consistent with CLIA requirements. This test has not been cleared or approved by the U.S. Food and Drug Administration. Blood 12/21/2019 11:5 7 AM EST 12/21/2019 12:17 PM EST Hamilton Nagel MD LAB BLOOD ORDERABLES Final Result Performing Organization Address [facility] de Phone Number [facility] MED/PATH [address] [place] [address] documented in this encounter Visit Diagnoses Diagnosis Recurrent syncope- Primary documented in this encounter Additional Health Concerns Assessment Noted Time PHQ-2 Depression Total Score: 0 09/07/20 19 4:21 PM EDT documented as of this encounter Care Teams Fresh Work Inspector Relationship Specialty Start Date End Date Hamilton Nagel MD [address] [place] [address] PCP - General 09/08/17 Hamilton Nagel MD [address] [place] [address] 09/08/17 documented as of this encounter Additional Source Comments The information contained in this document represents components of the legal health record. It is not the complete legal health record.[facility]
--- OUTSIDE RECORDS SUMMARY | 2025-08-09 17:00 | XMS_ITS | Clinical Summary ---
Author Organization [facility] Address [address] [place] [address] Phone Care Team Providers Care Carbonation Equipment Tender Name Role Phone Unavailable Primary Care Provider [...] Vaccines (1 - 3-dose SCDM series) 2008 Influenza Vaccines (#1) 2025 COVID-19 Vaccine ( - season) 2025 IPV Vaccines Completed 08/30/1986, 05/24, 03/08/1982, [...]
== END ==
LOC: HO.CARD 13:03
PROVIDERS: PCP Internal Medicine
DX: R55 Syncope and collapse (principal)
CPT/HCPCS: 93306

== ENCOUNTER → 2025-08-09 14:51 | Outpatient (BNV) | payer BC, SELFPAY | PROVIDERS: PCP Internal Medicine; Visit Provider Internal Medicine | DX: R55 Syncope and collapse (principal); R94.39 Abnormal result of other cardiovascular function study | CPT/HCPCS: 93306; 93356 ==

== ENCOUNTER 2025-10-12 14:10 | Outpatient (AMB) | payer BC, SELFPAY ==
--- OUTSIDE RECORDS SUMMARY | 2025-10-11 10:00 | XMS_ITS | Encounter Summary ---
Author Organization [facility] Address [address] [place] [phone] Phone Care Team Providers Care Vp Respiratory Name Role Phone Hamilton Nagel MD Primary Care Provider [phone] Hamilton Nagel MD Unavailable [phone] Reason for Visit * Reason Comments Medication Management Midodrine? * Consultation (Routine) - New Request Specialty Diagnoses / Procedures Referred By Leslye vo Referred To Contact Cardiology Julia Mattson MD [address] [place] [address] Phone: tel: fax: mailto:[email or web address] Referral ID Status Reason Start Date Expiration Date V isits Requested Visits Authorized [id number] New Request 09/07/2025 09/07/2026 1 1 Encounter Details Date Type Department Care Team (Latest Contact Info) Description 10/11/2025 10:00 AM EST Telemedicine [facility] [address] [place] [address] Glo Barakat MD [address] [place] [address] [email or web address] Syncope, unspecified syncope type (Primary Dx); TIA (transient ischemic attack); PFO (patent foramen ovale) Social History Tobacco Use Types Packs/Day Years Used Date Smoking Tobacco: Never Smokeless Tobacco: Never Tobacco Cessation:Counseling Given: Not Answered Education Answer Date Recorded Are you interested in more education? Not on ernie e 03/21/2023 Are you concerned about learning? Not on file 03/21/2023 No 03/21/2023 No 03/21/2023 Digital Access Answer Date Recorded No 04/18/2023 No 04/18/2023 Reliable internet access at home? Not on file 04/18/2023 Device with a working camera? Not on file Intimate Partner Violence Answer Date R ecorded Are you denied basic needs s uch as food, clothing, or medical care? No 09/07/2025 In the past 12 months have y ou been in a relationship with a person who hurts, threatens, or tries to control you? No 09/07/2025 Are you denied basic needs s uch as food, clothing, or medical care? No 09/07/2025 In the past 12 months have y ou been in a relationship with a person who hurts, threatens, or tries to control you? No 09/07/2025 Comments Unknown Sex and Gender Information Value Date Recorded Sex Assigned at Not on file Legal Sex Female 9:20 PM EDT Gender Identity Not on file Sexual Orientation Not on file documented as of this encounter Progress Notes * Glo Barakat MD - 10/11/2025 10:00 AM EST Images from the original note were not included. Patient: TC HUTTON [facility] Medical Record: [id number] Date of : 1980 HISTORY OF PRESENT ILLNESS: She is a 45 y.o. female who presents for consultation regarding syncope vs seizure. Tc Hutton has a medical history significant for, but not limited to, PFO, TIA. She had an uneventful , infancy, childhood, and young adulthood without serious illness, chronic medical therapy, nor operation. She played sports throughout her upbringing, and transition to jogging and exercise later in life. She had one remote episode of syncope, and a remote hospitalization for sinusitis during which time she was noted to have leukopenia which prompted a bone marrow biopsy which was apparently unrevealing. All the above were more than a decade prior to her index presentation. Index syncopal event in 2019. Over the next 5 months, multiple syncopal events each one preceded bya very brief prodrome that usually consists of chest tightness. The events have all occurred while sitting and have resulted in the loss of postural tone and subsequent falls. One event occurred while driving. 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 Interestingly her palpated rhythm is frequently been described as being very irregular in the context of syncope and once has been auscultated by at least 2 nurses who described her rhythm is very irregular. Interestingly her last event was also notable for cu taneous flushing during which her skin was described as being excessively hot, for which her colleagues and school nurses present placed ice packs on her back. Evaluation of this is included a treadmill stress test which she completed 12 minutes without any exercise-induced arrhythmia, as well as transthoracic echocardiogram which showed normal cardiac structure and function. She is undergone at least 2 event monitors. The results of 1 are available in the scanned chart. It is notable for an episode of reported syncope ? prior to and following which cardiac rhythm appears to be sinus tachycardia at a rate of 140 bpm. Additional events are reported by the patient to have shown a rate between 60 to 80 bpm. She states as recommended she has increased her fluid intake, liberalized her salt intake, and wornTED hose; all of which to no avail. After the event monitor showed sinus tachycardia at a rate of 140 bpm associated with syncope she was initiated on propranolol 10 mg p.o. twice daily. Not only didthis not improve syncope, it appears to potentially have worsened syncope. On discussion with the pharmacist she decreased the medication first and subsequently required self cessation of the medication. From a cardiac arrhythmia perspective she has had recurrent syncopal events while wearing at least 2 event recorder's, neither of which are reported have shown pauses, bradycardia, tachycardia that is likely to be culprit in her syncope - noting not all of the tracings are available for review today. Syncopal episodes stopped for a while but then recurred in June 2025. Her most recent episode waswhen in the passenger seat of the car, and she lost consciousness. She reports being able to hear the conversation around her. When resumed to baseline she had residual left sided weakness. Did not go to ER that evening. Awoke the next morning with resolution of weakness. Diagnostic evaluation: She has been evaluated by cardiology. A TTE , 30 day holter evaluations have been completed. A tilt table per notes reports positive for vasovagal sycope She has had a reported routine EEG which was normal History of Present Illness She experienced her first syncope episode in 2018, followed by several episodes over the subsequent5 months. After a period of quiescence, the episodes resumed in June 2025. Her initial episode occurred while driving, during which she experienced tinnitus and visual blackout. She managed to reach her workplace but collapsed upon arrival. She was transported to her stepfather's medical practice, where she experienced another syncopal episode. Paramedics were called, and she was taken to the ER, where her heart rate was found to be elevated. A comprehensive workup revealed only a low white blood cell count. She has been advised to elevate her feet, wear compression stockings, and increase h er salt intake. She consumes Element salt packets daily and an electrolyte drink. She does not consume excessive coffee, alcohol, drugs, energy drinks, or soda. She has worn a Holter monitor twice, both times yielding no significant findings. She has also usedan [employer] watch, which failed to record any data during her pre-syncope phase. She has experienced multiple syncopal episodes at various locations, including barbecues, school, dinner, and family birthday parties. Her most recent episode occurred on 07/16/2025, lasting approximately 4.5 minutes. Shereports feeling unwell prior to these episodes and appears pale post-episode. She has experienced atransient ischemic attack (TIA), characterized by numbness and immobility on her left side. She hasalso reported experiencing a tightening sensation and irregular heartbeat prior to her syncopal episodes. She has not experienced any syncopal episodes in the past 2.5 weeks. 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 She has undergone an echocardiogram and bubble study, which revealed a patent foramen ovale (PFO). She is scheduled for PFO surgery at [facility]. She has been advised to undergo a tilt table test at [facility]. She is scheduled to see Dr. Mattson in mid-November 2025 for a 72-hour EEG cap test. She has been advised to seek physical therapy for EDS. She has been advised against driving by Dr. Mattson. She has undergone an MRI of her brain and nerve endings in her neck, both of which were negative. She has not started taking midodrine as prescribed by Dr. Mattson because she wanted to talk to a heart doctor to make sure she should start taking it. She had taken beta blockers 6 years ago, which caused her to pass out more, so she took herself off it. She is currently on estradiol 0.025 and progesterone, having started the regimen in 03/2025. She underwent uterine ablation 7 years ago. She takes baby aspirin daily. PAST SURGICAL HISTORY: Uterine ablation 7 years ago. 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 Alcohol: Drinks alcohol Recreational Drugs: Does not use drugs Coffee/Tea/Caffeine-containing Drinks: Does not drink a ton of coffee, does not consume energy drinks or soda FAMILY HISTORY - Paternal grandmother: Pacemaker, details unknown The patient's cardiac testing/procedure history is notable for the following: TTE 08/09/2025: Tilt Table Test 03/04/2023: MCT 04/20/2019: Interpretation Summary Physician Comments: sinus rhythm Electronically Reviewed by TIP LUNA on 06/04/2019 6:03AM (CT). Signed at 0605 EDT [facility] Physician Role Tip Luna MD ETT 04/13/2019: Monitor 04/20/2018: PAST HISTORY No past medical history on file. No past surgical history on file. REVIEW OF SYSTEMS: 10 points review of systems negative other than above mentioned in the HPI. Social History Socioeconomic History Marital status: /Civil Union Spouse name: Not on file Number of children: Not on file Years of education: Not on file Highest education level: Not on file Occupational History Not on file Tobacco Use Smoking status: Never Smokeless tobacco: Never Substance and Sexual Activity Alcohol use: Not on file Drug use: Not on file Sexual activity: Not on file Other Topics Concern Not on file Social History Narrative Not on file Social Drivers of Health Residential Stability: Not on file No family history on file. Current Outpatient Medications Medication Sig Dispense Refill Last Dispense estradioL (VIVELLE-DOT) 0.025 mg/24 hr See Instructions, 1 patch apply to skin twice weekly, # 24 patch, 2 Refills, Maintenance, 06/07/25 1:29:00 PM EDT, [facility], Partial fill upon patient request if the prescription is for a schedule II opioid drug., 58.64, kg, 04/12/25 14:19:00 EDT, Dry Weight Unknown (patient-reported) fluticasone propionate (FLONASE) 50 mcg/actuation nasal spray 1 spray by Nasal route as needed. Unknown (patient-reported) loratadine (CLARITIN) 10 mg tablet Take 10 mg by mouth as needed. Unknown (patient-reported) midodrine (PROAMATINE) 5 MG tablet Take 1 tablet (5 mg total) by mouth 2 (two) times a day. 60 tablet 3 Unknown (outside pharmacy) progesterone 100 mg Supp Unknown (patient-reported) propranolol (INDERAL) 10 MG immediate release tablet Take 10 mg by mouth 2 (two) times a day. Unknown (patient-reported) therapeutic multivitamin tablet Take 1 tablet by mouth daily. Unknown (patient-reported) No current facility-administered medications for this visit. Allergies Allergen Reactions Pitted Fruit Hives and Itching Pollen Extracts Seasonal allergies PHYSICAL EXAMINATION: VITAL SIGNS: There were no vitals taken for this visit. General: NAD, AAOx3. Labs Reviewed: Lab Results Component Value Date WBC 2.21 (L) 04/27/2019 HGB 12.8 04/27/2019 HCT 38.5 04/27/2019 MCV 93.7 04/27/2019 PLT 171 04/27/2019 No results found for: CREATININE , BUN , NA , K , CL , CO2 , GLU , CALCIUM No results found for: CKTOTAL , CKMB , CKMBINDEX , TROPONINI No results found for: INR , PROTIME No results found for: TSH No results found for: ALT , AST , GGT , ALKPHOS , BILITOT No results found for: DDIMER No results found for: BNP ECG 09/07/2019: ASSESSMENT AND PLAN: Ms. Hutton is a 45 y.o. female with PFO, TIA and syncope. Preserved LV systolic function (EF 55%) with negative ambulatory cardiac monitoring even with syncopal episodes although some limited by artifact. Tilt table testing equivocal. Low suspicion for arrhythmic syncope but extended ambulatory monitoring with ILR certainly reasonable. Procedure explained in detail. Risks of the procedure, including but not limited to infection, bleeding and damage to surrounding structures, were discussed with the patient. All questions answered. Will attempt to assist with repeat tilt table testing at [facility]. I obtained verbal consent from the patient or their proxy to record this visit for purposes of producing a draft of the encounter documentation. Thank you for the opportunity to participate in the care of this patient. Glo Barakat MD Cardiac Arrhythmia Service [facility] Virtual Visit Attestation Modality: video Provider Location, state disclosed to patient: practice location Patient Location: home Patient State or Country: [place] E&M Billing based on time ([id number]): Yes Total time spent on date of service (min): 65 I personally spent the total time as documented on care for this patient on the date of the encounter. This includes ovam-dc-unbb time during the visit as well as non kmnv-fs-tdtn time spent on chartreview, documentation, and care coordination. documented in this encounter Plan of Treatment Upcoming Encounters Date Type Department Care Team (Latest Contact Info) Description 11/03/2025 Procedure Pass [facility] Electrophysiology Lab [address] [place] [phone] 11/03/2025 8:20 AM EST Hospital Encounter [facility] Electrophysiology Lab [address] [place] [phone] Glo Barakat MD [address] [place] [phone] [email or web address] 11/03/2025 8:20 AM EST - 11/03/2025 9:27 AM EST Surgery [facility] Electrophysiology Lab [address] [place] [phone] Glo Barakat MD [address] [place] [phone] [email or web address] Loop Recorder, Insertion 12/04/2025 9:30 AM EST Appointment [facility] Neurophysiology Lab [address] [place] [address] Julia Mattson MD [address] [place] [phone] [email or web address] 12/07/2025 9:30 AM EST Appointment [facility] Neurophysiology Lab [address] [place] [address] Julia Mattson MD [address] [place] [address] [email or web address] 02/21/2026 4:30 PM EDT Office Visit [facility], Department of Neurology [address] [place] [address] Julia Mattson MD [address] [place] [address] [email or web address] documented as of this encounter Visit Diagnoses Diagnosis Syncope, unspecified syncope type- Primary TIA (transient ischemic attack) Unspecified transient cerebral ischemia PFO (patent foramen ovale) Ostium secundum type atrial septal defect Syncope, unspecified syncope type Syncope, unspecified syncope type documented in this encounter Additional Health Concerns Assessment Noted Time PHQ-2 Depression Total Score: 0 09/07/20 25 3:02 PM EDT documented as of this encounter Care Teams Vp Respiratory Relationship Specialty Start Date End Date Hamilton Nagel MD [address] [place] [address] PCP - General 09/08/17 Hamilton Nagel MD [address] [place] [address] 09/08/17 documented as of this encounter Additional Source Comments The information contained in this document represents components of the legal health record. It is not the complete legal health record.[facility]
[2025-10-12 14:14] VITALS: BP 122/64; PULSE 85; BMI 18.9
--- NOTE | 2025-10-12 14:14 | A.OFFVIS_ITS ---
Vital Signs 10/12/25 14:14 Height 5 ft 9 in Weight 127 lb 13.89 oz BMI 18.9 BP 122/64 Blood Pressure Location Lt brachial Position Sitting Pulse 85 Pulse Source Pulse Oximeter Intake Visit Reasons: 3 month f/up echo holter Allergies pitted fruit Allergy (Unknown, Uncoded 02/28/25 15:10) hives SEASONAL ALLERGIES Allergy (Unknown, Uncoded 02/28/25 15:10) UNKOWN seasonal allergies Allergy (Unknown, Uncoded 02/28/25 15:10) Hives Medication List - Last Reconciled 10/12/25 by Tony Montiel NP aspirin 81 mg PO DAILY estradiol 0.5 mg PO DAILY midodrine 2.5 mg PO BID PRN progesterone micronized 100 mg PO QAM 21 days HPI Comments Details: This is a 45-year-old female patient coming in for a follow-up visit. Patient has been previously seen for syncopal episodes what undergone a tilt-table test that confirmed vasovagal syncope. At her last visit, patient had reported an episode of a syncopal episode in June where patient was sitting on the passenger seat looking at her phone and all of her sudden has been noted that the phone fell. Patient had stated that she was aware of the conversation happening while she was still passed out and after regaining consciousness, patient noted to have a left-sided weakness and footdrop. Patient did not go to the hospital for this and slept over it. Next morning patient's symptoms were all resolved. Patient had also undergone an EEG with Dr. Taveras that was negative. Given her concerns for TIAs, patient recently underwent a bubble study echocardiogram that confirmed a PFO. We had also planned for a 30 day event monitor to assess for potential arrhythmias and/or AFib however this is not completed. Patient states that she has established care with Neurology at [facility] in [place] where patient underwent MRI of the head and neck that was negative. Patient also was diagnosed with EDS. Patient states that she is planned for a EEG again with the in the near future. Patient had also being referred out to EP for an ILR placement which patient states is upcoming in the 2nd week of October. Today, patient is reporting feeling well overall without any recurrence in her symptoms. [facility] Surgical History H/O breast biopsy History of endometrial ablation History of wisdom tooth extraction Family History Mother Colon cancer, Onset Age: 60 Maternal Aunt Breast cancer, Onset Age: 50 Ovarian cancer, Onset Age: 57 Father Melanoma, Onset Age: 75 Brother Melanoma, Onset Age: 25 Social History Alcohol intake: current Alcohol intake frequency: holidays/special occasions only Patient Tobacco Use Status: Never used Tobacco Female Reproductive History Menstrual Age of Menarche: 14 Review of Systems Const Denies weakness ENT Denies dizziness Card Reports no additional complaints, Denies chest pain, Denies chest pain with activity, Denies syncope, Denies rapid heart rate, Denies pedal edema, Denies edema, Denies leg edema, Denies lightheadedness, Denies palpitations, Denies dyspnea, Denies dyspnea on exertion and Denies orthopnea Resp Denies cough, Denies dyspnea and Denies dyspnea on exertion GI Denies hematochezia and Denies change in stool character Musc Denies abnormal gait, Denies muscle cramps, Denies muscle weakness, Denies numbness, Denies radiating pain into limb and Denies tingling Neuro Denies abnormal gait, Denies dizziness, Denies syncope, Denies numbness, Denies tingling and Denies weakness Endo Denies palpitations Physical Exam Vital Signs: Last Vital Signs Pulse 85 10/12/25 14:14 BP 122/64 10/12/25 14:14 BMI result Body Mass Index 18.9 Const General: cooperative, healthy appearing, comfortable and no acute distress Orientation/consciousness: patient oriented x3 HEENT Head: Yes normal to inspection Neck Neck: Yes normal visual inspection, Yes trachea midline and Yes supple Chest Chest palpation & inspection: normal inspection of the chest Resp Effort & Inspection: normal respiratory effort Auscultation: clear to auscultation bilaterally, no crackles, no rales, no rhonchi and no wheezes Cardio Jugular venous distension: no JVD Palpation: normal PMI Rate: regular rate Rhythm: regular rhythm Heart sounds: S1 normal heart sound present, S2 normal heart sound present, no click, no gallops, no murmurs and no rubs Peripheral pulses: Peripheral pulses 2+ throughout GI Inspection: Yes normal to inspection Palpation (GI): Soft to palpation Auscultation: normal bowel sounds Skin General skin exam: no rashes or lesions noted Neuro General: patient oriented x3 Extrem General: Yes normal to inspection, No no pedal edema and No calf tenderness Psych Appearance: grossly normal Mental Status: mental status grossly normal Speech and movement: Normal speech and movement present Assessment & Plan Assessment & Plan (1) PFO (patent foramen ovale): Code(s): Q21.12 - Patent foramen ovale Category: Medical (2) Syncope: Code(s): R55 - Syncope and collapse Category: Medical Plan History of syncopal episodes where patient had undergone a tilt-table test that it confirmed vasovagal syncope. Back in June patient had reported an episode of left-sided weakness and footdrop concerning for TIAs and therefore patient underwent an echocardiogram with bubble study on 08/09/2025 that was positive for a PFO. We had also plan for a cardiac event monitor however this is not been completed as patient states that she had established neurology care at [facility] in [place] and has been referred to EP for an ILR placement on November 03 in [place]. Patient also has an upcoming EEG with Neurology there. Patient had also undergone MRI of the head and neck that was negative for infarcts or stenosis. Patient states that she was diagnosed there with EDS and has been recommended physical therapy. No recurrence in her symptoms. We will initiate patient on low-dose aspirin therapy. We will refer patient out to [facility] cardiac surgery for evaluation of PFO closure. We will also get a MASON to assess the PFO and its gradient. Patient was also started on low-dose midodrine therapy on an as-needed basis for her vasovagal syncope. Blood pressure today is stable. Advised on adequate hydration and wearing compression socks. Follow up after all the above workup. In the interim, patient will call the office with any concerns or change in symptoms. Reviewed case with Dr. Lion. This note was generated using voice recognition software. While every effort has been made to ensure accuracy and proper educational administration teacher, there may be occasional errors that could affect the content or meaning of the described symptoms. Orders: Orders CA echo transesophageal Today Q21.12 - Patent foramen ovale Referrals Cardiac Surgery Referral G45.9 - Transient cerebral ischemic attack, unspecified, Q21.12 - Patent foramen ovale, R55 - Syncope and collapse Medications: New estradiol 0.5 mg PO DAILY 90 tabs 0RF progesterone micronized off 7 days; repeat cycle 100 mg PO QAM 21 caps 0RF 21 days midodrine do not give last dose of day after 6PM or within 4 hrs of bedtime 2.5 mg PO BID PRN 60 tabs 2RF dizziness aspirin 81 mg PO DAILY 90 tabs 0RF Coding Level of Care Code Est Pt Level 4 (72588) Complex EM visit Add On G2211 Diagnoses PFO (patent foramen ovale) Q21.12 Syncope R55 Time Spent (min) 34 Comment Time spent in reviewing the chart, test results, assessment, counseling and documentation.
--- OUTSIDE RECORDS SUMMARY | 2025-10-13 02:39 | XMS_ITS | Encounter Summary ---
Author Organization [facility] Address [address] [place] [address] Phone Care Team Providers Care Terminal Clerk Name Role Phone Hamilton Nagel MD Primary Care Provider [phone] Hamilton Nagel MD Unavailable Encounter Details Date Type Department Care Team (Late st Contact Info) Description 09/07/2025 Procedure Pass [facility] MR Imaging, [place] [address] [place] [address] Social History Tobacco Use Types Packs/Day Years [...] (Latest Contact Info) Description 11/03/2025 Procedure Pass [facility] Electrophysiology Lab [address] [place] [address] 11/03/2025 8:20 AM EST Hospital Encounter [facility] Electrophysiology Lab [address] [place] [address] Glo Barakat MD [address] [place] [address] BOOKER@[email or web address] 11/03/2025 8:20 AM EST - 11/03/2025 9:27 AM EST Surgery [facility] Electrophysiology Lab [address] [place] [address] Glo Braakat MD [address] [place] [address] [email or web address] Loop Recorder, Insertion 12/04/2025 9:30 AM EST Appointment [facility] Neurophysiology Lab [address] [place] [address] Julia Mattson MD [address] [place] [address] [email or web address] 12/07/2025 9:30 AM EST Appointment [facility] Neurophysiology Lab [address] [place] [address] Julia Mattson MD 60 [place] [address] [email or web address]@[email or web address] 02/21/2026 4:30 PM EDT Office Visit [facility], Department of Neurology [address] [place] [address] Julia Mattson MD 60 [facility] [place] [address] [email or web address] documented as of this encounter Visit Diagnoses Not on filedocumented in this encounter Additional Health Concerns Assessment Noted Time PHQ-2 Depression Total Score: 0 09/07/20 25 3:02 PM EDT documented as of this encounter Care Teams Terminal Clerk Relationship Specialty Start Date End Date Hamilton Nagel MD [address] [place] [address] PCP - General 09/08/17 Hamilton Nagel MD [address] [place] [address] 09/08/17 documented as of this encounter Additional Source Comments The information contained in this document represents components of the legal health record. It is not the complete legal health record.[facility]
--- OUTSIDE RECORDS SUMMARY | 2025-10-13 02:39 | XMS_ITS | Encounter Summary ---
Author Organization [facility] Address [address] [place] [address] Phone Care Team Providers Care Accounts Payable Technician Name Role Phone Hamilton Nagel MD Primary Care Provider [phone] Hamilton Nagel MD Unavailable [phone] Encounter Details Date Type Department Care Team (Late st Contact Info) Description 09/07/2025 Procedure Pass [facility] MR Imaging, [place] [address] [place] [address] Social History Tobacco Use Types Packs/Day Years [...] (Latest Contact Info) Description 11/03/2025 Procedure Pass [facility] Electrophysiology Lab [address] [place] [address] 11/03/2025 8:20 AM EST Hospital Encounter [facility] Electrophysiology Lab [address] [place] [address] Glo Barakat MD [address] [place] [address] [email or web address] 11/03/2025 8:20 AM EST - 11/03/2025 9:27 AM EST Surgery [facility] Electrophysiology Lab [address] [place] [address] Glo Barakat MD [address] [place] [address] [email or web address] Loop Recorder, Insertion 12/04/2025 9:30 AM EST Appointment [facility] Neurophysiology Lab [address] [place] [address] Julia Mattson MD [address] [place] [address] [email or web address] 12/07/2025 9:30 AM EST Appointment [facility] Neurophysiology Lab [address] [place] [address] Julia Mattson MD [address] [place] [address] [email or web address] 02/21/2026 4:30 PM EDT Office Visit [facility], Department of Neurology [address] [place] [address] Julia Mattson MD [address] [place] [address] [email or web address] documented as of this encounter Visit Diagnoses Not on filedocumented in this encounter Additional Health Concerns Assessment Noted Time PHQ-2 Depression Total Score: 0 09/07/20 25 3:02 PM EDT documented as of this encounter Care Teams Accounts Payable Technician Relationship Specialty Start Date End Date Hamilton Nagel MD [address] [place] [address] PCP - General 09/08/17 Hamilton Nagel MD [address] [place] [address] 09/08/17 documented as of this encounter Additional Source Comments The information contained in this document represents components of the legal health record. It is not the complete legal health record.[facility]
--- OUTSIDE RECORDS SUMMARY | 2025-10-13 02:39 | XMS_ITS | Encounter Summary ---
Author Organization [facility] Address [address] [place] [address] Phone Care Team Providers Care Public Weigher Name Role Phone Hamilton Nagel MD Primary Care Provider [phone] Hamilton Nagel MD Unavailable [phone] Encounter Details Date Type Department Care Team (Late st Contact Info) Description 09/07/2025 Procedure Pass [facility] MR Imaging, [place] [address] [place] [address] Social History Tobacco Use Types Packs/Day Years [...] (Latest Contact Info) Description 11/03/2025 Procedure Pass [facility] Electrophysiology Lab [address] [place] [address] 11/03/2025 8:20 AM EST Hospital Encounter [facility] Electrophysiology Lab [address] [place] [address] Glo Barakat MD [address] [place] [address] BOOKER@[facility] 11/03/2025 8:20 AM EST - 11/03/2025 9:27 AM EST Surgery [facility] Electrophysiology Lab [address] [place] [address] Glo Barakat MD [address] [place] [address] [email or web address] Loop Recorder, Insertion 12/04/2025 9:30 AM EST Appointment [facility] Neurophysiology Lab [address] [place] [address] Julia Mattson MD 60 [place] [address] [email or web address] 12/07/2025 9:30 AM EST Appointment [facility] Neurophysiology Lab [address] [place] [address] Julia Mattson MD [address] [place] [address] [email or web address] 02/21/2026 4:30 PM EDT Office Visit [facility], Department of Neurology [address] [place] [address] Julia Mattson MD 60 [facility] [place] [address] [email or web address] documented as of this encounter Visit Diagnoses Not on filedocumented in this encounter Additional Health Concerns Assessment Noted Time PHQ-2 Depression Total Score: 0 09/07/20 25 3:02 PM EDT documented as of this encounter Care Teams Public Weigher Relationship Specialty Start Date End Date Hamilton Nagel MD [address] [place] [address] PCP - General 09/08/17 Hamilton Nagel MD [address] [place] [address] 09/08/17 documented as of this encounter Additional Source Comments The information contained in this document represents components of the legal health record. It is not the complete legal health record.[facility]
--- OUTSIDE RECORDS SUMMARY | 2025-10-13 02:40 | XMS_ITS | Encounter Summary ---
Author Organization [facility] Address [address] [place] [address] Phone Care Team Providers Care Ballpoint Pen Cartridge Tester Name Role Phone Hamilton Nagel MD Primary Care Provider [phone] Hamilton Nagel MD Unavailable [phone] Encounter Details Date Type Department Care Team (Latest Contact Info) Description 05/10/2019 Transcribe Orders [address] [address] Steve Rivas MD [address] [place] [address] [email or web address] Syncope and collapse (Primary Dx); Sinus [...] (Latest Contact Info) Description 11/03/2025 Procedure Pass [facility] Electrophysiology Lab [address] [place], [place] [phone] 11/03/2025 8:20 AM EST Hospital Encounter [facility] Electrophysiology Lab [address] [place] [address] Glo Barakat MD [address] [place] [address] [email or web address] 11/03/2025 8:20 AM EST - 11/03/2025 9:27 AM EST Surgery [facility] Electrophysiology Lab [address] [place] [address] Glo Barakat MD [address] [place] [address] [email or web address] Loop Recorder, Insertion 12/04/2025 9:30 AM EST Appointment [facility] Neurophysiology Lab [address] [place] [address] Julia Mattson MD [address] [place] [address] TAMARA@[email or web address] 12/07/2025 9:30 AM EST Appointment [facility] Neurophysiology Lab [address] [place] [address] Julia Mattson MD [address] [place] [address] TAMARA@[email or web address] 02/21/2026 4:30 PM EDT Office Visit [facility], Department of Neurology [address] [place] [address] Julia Mattson MD [address] [place] [address] [email or web address] documented as of this encounter Results * Metanephrines, 24 hr urine (05/11/2019 7:59 AM EDT) METANEPHRINE 114 mcg/24 h [facility] MED[facility] [address] Comment: (NOTE) REFERENCE VALUE 30-180 (Normotensive) <400 (Hypertensive) DALY NORMETANEPHRINE 216 mcg/24 h [facility] Comment: (NOTE) REFERENCE VALUE 111-419 (Normotensive) <900 (Hypertensive) TU TOTAL METANEPHRINE 330 mcg/24 h [facility] [address] [place] Comment: (NOTE) REFERENCE VALUE 149-535 (Normotensive) <1300 (Hypertensive) TOTAL VOLUME 2,600 mL [facility] [address] [place] Comment: (NOTE) ADDITIONAL INFORMATION This test was developed and its performance characteristics determined by [facility] in a manner consistent with CLIA requirements. This test has not been cleared or approved by the U.S. Food and Drug Administration. COLLECTION DURATION 24 h [facility] [address] DALY CLAIRE COMMENT Test component not applicable or not reported. [facility] [address] [place] Urine (Urine) 05/11/2019 7:5 9 AM EDT 05/11/2019 2:50 PM EDT Steve Rivas MD LAB URINE ORDERABLES Final R esult [facility] [address] [place] [address] * Cortisol AM (05/10/2019 9:21 AM EDT) Pathologist [facility] CORTISOL AM 12.9 6.2 - 19.4 ug/dL [facility] Blood 05/10/2019 9:21 AM EDT 05/10/2019 9:55 AM EDT Steve Rivas MD LAB BLOOD BKR ORDERABLES Fin al Result [facility] [address] [place] [address] documented in this encounter Visit Diagnoses Diagnosis Syncope and collapse- Primary Sinus tachycardia Other specified cardiac dysrhythmias Syncope, unspecified syncope type Syncope, unspecified syncope type documented in this encounter Additional Health Concerns Assessment Noted Time PHQ-2 Depression Total Score: 0 04/27/20 19 1:29 PM EDT documented as of this encounter Care Teams Ballpoint Pen Cartridge Tester Relationship Specialty Start Date End Date Hamilton Nagel MD [address] [place] [address] PCP - General 09/08/17 Hamilton Nagel MD [address] [place] [address] 09/08/17 documented as of this encounter Additional Source Comments The information contained in this document represents components of the legal health record. It is not the complete legal health record.[facility]
--- OUTSIDE RECORDS SUMMARY | 2025-10-13 02:40 | XMS_ITS | Clinical Summary ---
Author Organization [facility] Address [address] [place] [address] Phone Care Team Providers Care Marketing Program Coordinator Name Role Phone Hamilton Nagel MD Primary Care Provider [phone] Hamilton Nagel MD Unavailable [phone] Allergies Active Allergy Reactions Criticality Noted Date Comments Pitted Fruit Hives,Itching 10/11/2025 Pollen Extracts 10/11/2025 Seasonal allergies Medications loratadine (CLARITIN) 10 mg tablet Take 10 mg by mouth as needed. Active fluticasone propionate (FLONASE) 50 mcg/actuation nasal spray 1 spray by Nasal route as needed. Active propranolol (INDERAL) 10 MG immediate release tablet Take 10 mg by mouth 2 (two) times a day. Active therapeutic multivitamin tablet Take 1 tablet by mouth daily. Active estradioL (VIVELLE-DOT) 0.025 mg/24 hr See Instructions, 1 patch apply to skin twice weekly, # 24 patch, 2 Refills, Maintenance, 06/07/25 1:29:00 PM EDT, [facility], Partial fill upon patient request if the prescription is for a schedule II opioid drug., 58.64, kg, 04/12/25 14:19:00 EDT, Dry Weight 5 Active progesterone 100 mg Supp Active midodrine (PROAMATINE) 5 MG tablet Take 1 tablet (5 mg total) by mouth 2 (two) times a day. 60 tablet 3 5 Active Active Problems No known active problems Encounters Date Type Department Care Team Description 10/11/2025 10:00 AM EST Telemedicine [facility] [address] [place] [address] Glo Barakat MD Syncope, unspecified syncope type (Primary Dx); TIA (transient ischemic attack); PFO (patent foramen ovale) 09/14/2025 6:21 PM EDT - 09/14/2025 11:59 PM EDT Hospital Encounter [facility] MR Imaging, [place] [address] [place] [address] Julia Mattson MD Discharge Disposition: Home or Self Care 09/07/2025 3:00 PM EDT Office Visit [facility], Department of Neurology [address] [place] [address] Julia Mattson MD Stenosis of carotid artery, unspecified laterality (Primary Dx); Complex partial seizures; Neurocardiogenic syncope; Vasovagal syncope; Orthostatic intolerance; TIA (transient ischemic attack) 09/07/2025 Procedure Pass [facility] MR Imaging, [place] [address] [place] [address] 09/07/2025 Procedure Pass [facility] MR Imaging, [place] [address] [place] [address] 09/07/2025 Procedure Pass [facility] MR Imaging, [place] [address] [place] [address] from Last 3 Months Social History Tobacco Use Types Packs/Day Years [...] Sign Reading Time Taken Comments Blood Pressure 116/74 09/07/2025 3:01 PM EDT Pulse 76 09/07/2025 3:01 PM EDT Temperature 35.9 C (96.7 F) 09/07/2025 3:01 PM EDT Respiratory Rate 16 09/07/2025 3:01 PM EDT Oxygen Saturation 100% 09/07/2025 3:01 PM EDT Inhaled Oxygen Concentration - - Weight 58.5 kg (129 lb) 09/07/2025 3:01 PM EDT Height - - Body Mass Index - - Plan of Treatment Upcoming Encounters Date Type Department Care Team (Latest Contact Info) Description 11/03/2025 Procedure Pass [facility] Electrophysiology Lab [address] [place] [address] 11/03/2025 8:20 AM EST Hospital Encounter [facility] Electrophysiology Lab [address] [place] [address] Glo Barakat MD [address] [place] [address] [email or web address] 11/03/2025 8:20 AM EST - 11/03/2025 9:27 AM EST Surgery [facility] Electrophysiology Lab [address] [place] [address] Glo Barakat MD [address] [place] [address] [email or web address] Loop Recorder, Insertion 12/04/2025 9:30 AM EST Appointment [facility] Neurophysiology Lab [address] [place] [address] Julia Mattson MD [address] [place] [address] TAMARA@[email or web address] 12/07/2025 9:30 AM EST Appointment [facility] Neurophysiology Lab [address] [place] [address] Julia Mattson MD [address] [place] [address] [email or web address] 02/21/2026 4:30 PM EDT Office Visit [facility], Department of Neurology [address] [place] [address] Julia Mattson MD [address] [place] [address] [email or web address] Health Maintenance Due Date Last Done Comments Adult Td,Tdap Booster 1981 HEPATITIS C SCREENING 1999 HIV ONE-TIME SCREENING (18-6 5 YEARS) 1999 LIPID PANEL 1999 PAP SMEAR 2002 MAMMOGRAM 2021 INFLUENZA VACCINE (#1) 2025 COVID-19 VACCINE ( - 2024-2 6 season) 2025 DEPRESSION SCREENING 09/07/2026 09/07/2025 SMOKING STATUS SCREENING (On ce After 26 Yrs) Completed 10/11/2025 HEPATITIS A VACCINES Aged Out No long [...] this topic Medical Devices Not on file Procedures Procedure Name Priority Date/Time Associated Diagnosis Comments MRA NECK WITH AND WITHOUT CONTRAST Routine 09/14/2025 7:02 PM EDT Stenosis of carotid artery, unspecified laterality MRA HEAD WITHOUT CONTRAST Routine 09/14/2025 7:02 PM EDT Complex partial seizures MRI BRAIN WITH AND WITHOUT CONTRAST Routine 09/14/2025 7:02 PM EDT Complex partial seizures from Last 3 Months Results * MRI BRAIN WITH AND WITHOUT CONTRAST (09/14/2025 7:02 PM EDT) Anatomical Region Laterality Modality Head Magnetic Resonan ce 09/14/2025 7:42 PM EDT Impressions 09/14/2025 7:44 PM EDT No acute intracranial or vascular abnormality seen. Narrative 09/14/2025 7:44 PM EDT MRI of the brain before and after contrast. MRA of the [place] without contrast and MRA of the neck after contrast were performed with 3-D MIPS reconstruction to evaluate vascular. FINDINGS: Ventricles and sulci appropriate for patient's age. No acute hemorrhage diffusion seen. After no abnormal enhancing foci noted. MRA of [place] show patent SAJAN [employer] MARKETING SALES MANAGER vertebral basilar and internal carotid arteries. No aneurysm or vascular stenosis seen. Dominant left vertebral system. MRA of the neck shows patent bilateral common internal and external carotid and vertebral basilar arteries. No stenosis seen. Again dominant left vertebral system. Procedure Note Sheyla Carter MD - 09/14/2025 MRI of the brain before and after contrast. MRA of the tun[place]bilox[place] of Williswithout contrast and MRA of the neck after contrast were performed with3-D MIPS reconstruction to evaluate vascular. FINDINGS: Ventricles and sulci appropriate for patient's age. No acutehemorrhage diffusion seen. After no abnormal enhancing foci noted. MRA of [place] show patent SAJAN [employer] MARKETING SALES MANAGER vertebral basilar andinternal carotid arteries. No aneurysm or vascular stenosis seen. Dominantleft vertebral system. MRA of the neck shows patent bilateral common internal and externalcarotid and vertebral basilar arteries. No stenosis seen. Again dominantleft vertebral system. IMPRESSION: No acute intracranial or vascular abnormality seen. Julia Lui MD IMG MR HEAD/NECK Final Result * MRA NECK WITH AND WITHOUT CONTRAST (09/14/2025 7:02 PM EDT) Anatomical Region Laterality Modality Neck Magnetic Resonan ce 09/14/2025 7:42 PM EDT Impressions 09/14/2025 7:44 PM EDT No acute intracranial or vascular abnormality seen. Narrative 09/14/2025 7:44 PM EDT MRI of the brain before and after contrast. MRA of the [place] of [place] without contrast and MRA of the neck after contrast were performed with 3-D MIPS reconstruction to evaluate vascular. FINDINGS: Ventricles and sulci appropriate for patient's age. No acute hemorrhage diffusion seen. After no abnormal enhancing foci noted. MRA of [place] show patent SAJAN [employer] MARKETING SALES MANAGER vertebral basilar and internal carotid arteries. No aneurysm or vascular stenosis seen. Dominant left vertebral system. MRA of the neck shows patent bilateral common internal and external carotid and vertebral basilar arteries. No stenosis seen. Again dominant left vertebral system. Procedure Note Sheyla Carter MD - 09/14/2025 MRI of the brain before and after contrast. MRA of the tun[place]bilox[place] Willis[place] contrast and MRA of the neck after contrast were performed with3-D MIPS reconstruction to evaluate vascular. FINDINGS: Ventricles and sulci appropriate for patient's age. No acutehemorrhage diffusion seen. After no abnormal enhancing foci noted. MRA of [place] show patent SAJAN [employer] MARKETING SALES MANAGER vertebral basilar andinternal carotid arteries. No aneurysm or vascular stenosis seen. Dominantleft vertebral system. MRA of the neck shows patent bilateral common internal and externalcarotid and vertebral basilar arteries. No stenosis seen. Again dominantleft vertebral system. IMPRESSION: No acute intracranial or vascular abnormality seen. Julia Lui MD [facility] MR HEAD/NECK Final Result * MRA HEAD WITHOUT CONTRAST (09/14/2025 7:02 PM EDT) Anatomical Region Laterality Modality Head Magnetic Resonan ce 09/14/2025 7:42 PM EDT Impressions 09/14/2025 7:44 PM EDT No acute intracranial or vascular abnormality seen. Narrative 09/14/2025 7:44 PM EDT MRI of the brain before and after contrast. MRA of the [place] of [place] without contrast and MRA of the neck after contrast were performed with 3-D MIPS reconstruction to evaluate vascular. FINDINGS: Ventricles and sulci appropriate for patient's age. No acute hemorrhage diffusion seen. After no abnormal enhancing foci noted. MRA of [place] of [place] show patent SAJAN [employer] MARKETING SALES MANAGER vertebral basilar and internal carotid arteries. No aneurysm or vascular stenosis seen. Dominant left vertebral system. MRA of the neck shows patent bilateral common internal and external carotid and vertebral basilar arteries. No stenosis seen. Again dominant left vertebral system. Procedure Note Sheyla Carter MD - 09/14/2025 MRI of the brain before and after contrast. MRA of the tun[place]bil[place] of Williswithout contrast and MRA of the neck after contrast were performed with3-D MIPS reconstruction to evaluate vascular. FINDINGS: Ventricles and sulci appropriate for patient's age. No acutehemorrhage diffusion seen. After no abnormal enhancing foci noted. MRA of [place] show patent SAJAN [employer] MARKETING SALES MANAGER vertebral basilar andinternal carotid arteries. No aneurysm or vascular stenosis seen. Dominantleft vertebral system. MRA of the neck shows patent bilateral common internal and externalcarotid and vertebral basilar arteries. No stenosis seen. Again dominantleft vertebral system. IMPRESSION: No acute intracranial or vascular abnormality seen. Julia Lui MD IMG MR HEAD/NECK Final Result from Last 3 Months Insurance [facility] EPO BLUE [facility] PPO EPO [facility] PPO EPO [facility] PPO EPO BLUE [facility] [place] [address] [place] [address] PPO EPO [facility] PPO EPO [facility] [place] [address] [place] [address] PPO EPO Care Teams Marketing Program Coordinator Relationship Specialty Start Date End Date Hamilton Nagel MD [address] [place] [address] PCP - General 09/08/17 Hamilton Nagel MD [address] [place] [address] 09/08/17 Additional Source Comments The information contained in this document represents components of the legal health record. It is not the complete legal health record.[facility]
--- OUTSIDE RECORDS SUMMARY | 2025-10-13 02:40 | XMS_ITS | Clinical Summary ---
Author Organization [facility] Address [address] [place] [address] Phone Care Team Providers Care Motor Mechanic Name Role Phone Unavailable Primary Care Provider [...] Vaccines (#1) 2025 COVID-19 Vaccine ( - 2024- season) 2025 IPV Vaccines Completed 08/30/1986, 05/24, [...]
--- OUTSIDE RECORDS SUMMARY | 2025-10-13 02:40 | XMS_ITS | Encounter Summary ---
Author Organization [facility] Address [address] [place] [address] Phone Care Team Providers Care Computer Language Coder Name Role Phone Hamilton Nagel MD Primary Care Provider [phone] Hamilton Nagel MD Unavailable Encounter Details Date Type Department Care Team (Latest Contact Info) Description 12/21/2019 Transcribe Orders [address] [address] Hamilton Nagel MD [address] [place] [address] Recurrent syncope (Primary Dx) Social History Tobacco [...] (Latest Contact Info) Description 11/03/2025 Procedure Pass [facility] Electrophysiology Lab [address] [place] [address] 11/03/2025 8:20 AM EST Hospital Encounter [facility] Electrophysiology Lab [address] [place] [address] Glo Barakat MD [address] [place] [address] [email or web address] 11/03/2025 8:20 AM EST - 11/03/2025 9:27 AM EST Surgery [facility] Electrophysiology Lab [address] [place] [address] Glo Barakat MD [address] [place] [address] [email or web address] Loop Recorder, Insertion 12/04/2025 9:30 AM EST Appointment [facility] Neurophysiology Lab [facility] [place] [address] Julia Mattson MD [address] [place] [address] [email or web address] 12/07/2025 9:30 AM EST Appointment [facility] Neurophysiology Lab [address] [place] [address] Julia Mattson MD [address] [place] [address] [email or web address] 02/21/2026 4:30 PM EDT Office Visit [facility], Department of Neurology [address] [place] [address] Julia Mattson MD [address] [place] [address] [email or web address] documented as of this encounter Results * 5-HIAA, 24 hr urine (12/24/2019 8:14 AM EST) TIMED URINE 5HIAA 3.1 <=7.0 mg/24 h [facility] DPT OF LAB MED AND PAT+ TOTAL VOLUME 1,950 mL [facility] DPT OF LAB MED AND PAT+ Comment: (NOTE) ADDITIONAL INFORMATION Liquid Chromatography-Tandem Mass Spectrometry (LC-MS/MS). Values obtained from different assay methods or kits may be different and cannot be used interchangeably. The results cannot be interpreted as absolute evidence for the presence or absence of malignant disease. This test was developed and its performance characteristics determined by [facility] in a manner consistent with CLIA requirements. This test has not been cleared or approved by the U.S. Food and Drug Administration. COLLECTION DURATION 24 h [facility] DPT OF LAB MED AND PAT+ Urine (Urine) 12/24/2019 8:1 4 AM EST 12/24/2019 8:35 AM EST Hamilton Nagel MD URINE ORDERABLES Final Res ult Performing Organization Address [facility] de Phone Number [facility] DPT OF LAB MED AND PAT+ [address] [place] [address] * Chromogranin A (12/21/2019 11:57 AM EST) CHROMOGRANIN A 50 <93 ng/mL [facility] LAB MED/PATH SUPERIOR Comment: (NOTE) ADDITIONAL INFORMATION This test was developed and its performance characteristics determined by [facility] in a manner consistent with CLIA requirements. [...] BLOOD ORDERABLES Final Result Performing Organization Address [facility] de Phone Number [facility] LAB MED/PATH SUPERIOR [address] [place] [address] * SEROTONIN, SERUM (12/21/2019 11:57 AM EST) SEROTONIN, SERUM 64 <=230 NG/ML [facility] LAB MED/PATH SUPERIOR Comment: (NOTE) ADDITIONAL INFORMATION This test was developed and its performance characteristics determined by [facility] in a manner consistent with CLIA requirements. This test has not been cleared or approved by the U.S. Food and Drug Administration. Blood 12/21/2019 11:5 7 AM EST 12/21/2019 12:17 PM EST us Hamilton Nagel MD LAB BLOOD ORDERABLES Final Result [facility]PATH [facility] [address] [place] [address] documented in this encounter Visit Diagnoses Diagnosis Recurrent syncope- Primary Syncope, unspecified syncope type Syncope, unspecified syncope type documented in this encounter Additional Health Concerns Assessment Noted Time PHQ-2 Depression Total Score: 0 09/07/20 19 4:21 PM EDT documented as of this encounter Care Teams Computer Language Coder Relationship Specialty Start Date End Date Hamilton Nagel MD [address] [place] [address] PCP - General 09/08/17 Hamilton Nagel MD [address] [place] [address] 09/08/17 documented as of this encounter Additional Source Comments The information contained in this document represents components of the legal health record. It is not the complete legal health record.[facility]
--- OUTSIDE RECORDS SUMMARY | 2025-10-13 02:40 | XMS_ITS | Encounter Summary ---
Author Organization [facility] Address [address] [place] [address] Phone Care Team Providers Care Supervisor Seaming Name Role Phone Hamilton Nagel MD Primary Care Provider [phone] Hamilton Nagel MD Unavailable [phone] Encounter Details Date Type Department Care Team (Late st Contact Info) Description 04/27/2019 Transcribe Orders [facility] [address] [place] [address] Sai Blanco [address] [place] [address] [email or web address] Social History Tobacco Use Types Packs/Day Years [...] (Latest Contact Info) Description 11/03/2025 Procedure Pass [facility] Electrophysiology Lab [address] [place] [address] 11/03/2025 8:20 AM EST Hospital Encounter [facility] Electrophysiology Lab [address] [place] [address] Glo Barakat MD [address] [place] [address] [email or web address] 11/03/2025 8:20 AM EST - 11/03/2025 9:27 AM EST Surgery [facility] Electrophysiology Lab [address] [place] [address] Glo Barakat MD [address] [place] [address] [email or web address] Loop Recorder, Insertion 12/04/2025 9:30 AM EST Appointment [facility] Neurophysiology Lab [address] [place] [address] Julia Mattson MD [address] [place] [address] [email or web address] 12/07/2025 9:30 AM EST Appointment [facility] Neurophysiology Lab [address] [place] [address] Julia Mattson MD [address] [place] [address] [email or web address] 02/21/2026 4:30 PM EDT Office Visit [facility], Department of Neurology [address] [place] [address] Julia Mattson MD [address] [place] [address] [email or web address] documented as of this encounter Results * US Chest Outside (No Interpretation) (04/27/2019 8:07 AM EDT) Narrative [facility] - 04/27/2019 8:07 AM EDT This study is for PACS storage only and not for interpretation. us Steve Rivas MD IMG OUTSIDE IMAGING W/OUT IN TERPRETATION Final Result [facility] documented in this encounter Visit Diagnoses Not on filedocumented in this encounter Additional Health Concerns Assessment Noted Time PHQ-2 Depression Total Score: 0 04/27/20 19 1:29 PM EDT documented as of this encounter Care Teams Supervisor Seaming Relationship Specialty Start Date End Date Hamilton Nagel MD [address] [place] [address] PCP - General 09/08/17 Hamilton Nagel MD [address] [place] [address] 09/08/17 documented as of this encounter Additional Source Comments The information contained in this document represents components of the legal health record. It is not the complete legal health record.[facility]
== END 2025-10-12 14:51 | disposition home or self-care (01) ==
LOC: HO.HCS 14:11
PROVIDERS: PCP Internal Medicine
DX: Q21.12 Patent foramen ovale (principal); R55 Syncope and collapse
CPT/HCPCS: 99214

== ENCOUNTER 2025-10-18 12:58 | Day surgery (SDC) | payer BC, SELFPAY ==
--- NOTE | 2025-10-17 08:29 | P.CONAN_ITS ---
Documented by User: Marianna Kaur NP 10/17/25 08:30 HPI - Anesthesia Eval Consult details Narrative: 45 yr old female for transesophageal echocardiogram PMFSH Active Problems Active Problems: All Active Problems (Updated 10/12/25 @ 14:53 by Tony Montiel NP) PFO (patent foramen ovale) (Acute) Early menopause occurring in patient age younger than 45 years (Acute) Perimenopausal symptoms (Acute) Uterine cramping (Acute) H/O breast biopsy (Acute) History of endometrial ablation (Acute) Abdominal bloating (Acute) Syncope (Acute) Well woman exam with routine gynecological exam (Acute) Screen for sexually transmitted diseases (Acute) Cervical cancer screening (Acute) Family hx of melanoma (Acute) Family hx of ovarian malignancy (Acute) Family hx of colorectal cancer (Acute) Abnormal MRI, breast (Acute) Bilateral mastodynia (Acute) At high risk for breast cancer (Acute) Past Medical History Medical History TIA (transient ischemic attack) PFO (patent foramen ovale) Family History Family History Mother Colon cancer, Onset Age: 60 Maternal Aunt Breast cancer, Onset Age: 50 Ovarian cancer, Onset Age: 57 Father Melanoma, Onset Age: 75 Brother Melanoma, Onset Age: 25 Surgical History Surgical History Butner teeth extracted H/O breast biopsy History of endometrial ablation History of wisdom tooth extraction Social History Social History Alcohol intake: current Alcohol intake frequency: holidays/special occasions only Patient Tobacco Use Status: Never used Tobacco Have you been hit, kicked, punched, or otherwise hurt by someone within the past year? If so, by whom?: No Are you DNR?: No Advance Directives: No Advance Directives Information Provided: Yes Patient : No Meds Allergies Allergy/AdvReac Type Severity Reaction Status Date / Time pitted fruit Allergy Unknown hives Uncoded 02/28/25 15:10 SEASONAL ALLERGIES Allergy Unknown UNKOWN Uncoded 02/28/25 15:10 seasonal allergies Allergy Unknown Hives Uncoded 02/28/25 15:10 Home Medications ?Medication ?Instructions ?Recorded ?Confirmed ?Last Taken ?Type progesterone micronized 100 mg 100 mg PO BEDTIME 10/1810/18/25 10/17/25 History capsule Documented by User: Renea Miranda MD 10/18/25 14:22 [facility] Past Medical History Medical History TIA (transient ischemic attack) PFO (patent foramen ovale) Family History Family History Mother Colon cancer, Onset Age: 60 Maternal Aunt Breast cancer, Onset Age: 50 Ovarian cancer, Onset Age: 57 Father Melanoma, Onset Age: 75 Brother Melanoma, Onset Age: 25 Surgical History Surgical History Butner teeth extracted H/O breast biopsy History of endometrial ablation History of wisdom tooth extraction History of Problems with Anesthesia: No Social History Social History Alcohol intake: current Alcohol intake frequency: holidays/special occasions only Patient Tobacco Use Status: Never used Tobacco Have you been hit, kicked, punched, or otherwise hurt by someone within the past year? If so, by whom?: No Are you DNR?: No Advance Directives: No Advance Directives Information Provided: Yes Patient : No Meds Allergies Allergy/AdvReac Type Severity Reaction Status Date / Time pitted fruit Allergy Unknown hives Uncoded 02/28/25 15:10 SEASONAL ALLERGIES Allergy Unknown UNKOWN Uncoded 02/28/25 15:10 seasonal allergies Allergy Unknown Hives Uncoded 02/28/25 15:10 Home Medications ?Medication ?Instructions ?Recorded ?Confirmed ?Last Taken ?Type progesterone micronized 100 mg 100 mg PO BEDTIME 10/1810/18/25 10/17/25 History capsule Exam Airway Mallampati Class: II TM Dist: >3cm Neck ROM: Full Loose/Missing/Broken Teeth: No Heart: RRR Lungs: CTA Assessment and Plan Assessment Anesthesia Assessment: Anesthesia Plan Discussed and Chart Reviewed Final Anesthetic Review History of Problems with Anesthesia: No NPO: Yes ASA Class: II Final Preanesthetic Review: Meds/Allgs Chart Reviewed, Consent Obtained/Reviewed and Anes Risks/Benef Reviewed Patient Risk: Low Procedure Risk: Low Anesthetic Plan Anesthetic Plan: MAC: Disposition: Standard PACU
[2025-10-18 13:43] VITALS: BP 111/68; PULSE 78; RESP 20; TEMP 36.9; O2SAT 97; BMI 18.5
[2025-10-18] MEDS: Lactated Ringers 1,000 ML 100 ML IVCONT (13:43)
[2025-10-18 13:52] LABS: UPreg QC Valid YES
--- NOTE | 2025-10-18 14:30 | CA_ITS ---
Transesophageal Echocardiogram Patient (Last, First, Middle): Mohini Hutton E Gender: Female Date of : 1980 Age: 45 Procedure Date: 10/18/2025 Procedure Type: Transesophageal Echocardiogram Location: OP Height: 175.26 cm Weight: 57.61 kg BSA: 1.70 m2 Heart Rate: 69 bpm Solutions Specialist: Referring MD: Tony Montiel NP Symptoms: Q21.12 - Patent foramen ovale Conclusion: ??? Cannot rule out a small PFO in some views with color dopplers. ??? Bubble study negative at rest and post Valsalva but bubble study quality was poor. Findings Left Ventricle Normal left ventricular size and systolic function. The visually estimated ejection fraction is between 55-60%. There is no evidence of regional wall motion abnormalities. Right Ventricle Normal right ventricular cavity size and systolic function. Atria The left atrium is normal in size. There is no evidence of a thrombus in the left atrial appendage. There is no evidence of interatrial shunt by agitated saline. Small PFO noted in some views-no obvious shunting. Bubble study negative at rest and post valsalva. Aortic Valve There is a normal trileaflet aortic valve. There is no aortic valve stenosis. There is no aortic valve regurgitation. Mitral Valve Normal mitral valve structure and function. There is no mitral valve regurgitation. There is no mitral valve stenosis. Pulmonic Valve The pulmonic valve was not well visualized. Tricuspid Valve Normal tricuspid valve structure and function. There is trace tricuspid valve regurgitation. Great Vessels All visible segments of the aorta are normal in size. Pericardium/Pleural There is no evidence of pericardial effusion. Updated by Mitchel Lion on 02:40 PM with Status of Final Mitchel Lion MD electronically signed on 10/19/2025 2:40:05 PM with status of Final
--- NOTE | 2025-10-18 14:35 | MHC.SHP ---
Pre-Procedural Eval Section A - 24 Hr Update-Section A only Date of Service: 10/18/25 The patient is an INPATIENT: No The patient has been examined within 24 hours of the surgical procedure. The History & Physical has been completed within 30 days and I have reviewed it.: No Section B - Complete if H&P > 30 days Chief Complaint: Patent foramen ovale Allergies: Allergies Allergy/AdvReac Type Severity Reaction Status Date / Time pitted fruit Allergy Unknown hives Uncoded 02/28/25 15:10 SEASONAL ALLERGIES Allergy Unknown UNKOWN Uncoded 02/28/25 15:10 seasonal allergies Allergy Unknown Hives Uncoded 02/28/25 15:10 Plan Diagnosis/Plan: Unchanged I have reviewed the history and physical and performed a pertinent physical examination on my patient. No changes have occurred unless specified. Time Spent With Patient Time: Total time managing care of this patient today ____ minutes.
[2025-10-18 15:07] VITALS: BP 93/34; PULSE 65; RESP 18; TEMP 36.3; O2SAT 98
[2025-10-18 15:10] VITALS: BP 93/47; PULSE 60; RESP 13; O2SAT 100
[2025-10-18 15:15] VITALS: BP 91/50; PULSE 60; RESP 15; O2SAT 100
[2025-10-18 15:25] VITALS: BP 99/57; PULSE 62; RESP 13; TEMP 36.1; O2SAT 100
== END 2025-10-18 16:16 | disposition home or self-care (01) ==
PROVIDERS: Nurse Practitioner; PCP Internal Medicine; Visit Provider Internal Medicine Cardiovascular Disease
PROC: (CPT 93312; principal; 2025-10-18 14:30)
DX: Q21.12 Patent foramen ovale (principal); R55 Syncope and collapse; Z86.73 Personal history of transient ischemic attack (TIA), and cerebral infarction without residual deficits; J30.2 Other seasonal allergic rhinitis; Z91.018 Allergy to other foods; Z79.82 Long term (current) use of aspirin; Z79.899 Other long term (current) drug therapy
CPT/HCPCS: 93312; 81025; J2003; J2250; J2704

== ENCOUNTER → 2025-10-18 14:30 | Outpatient (BNV) | payer BC, SELFPAY | PROVIDERS: PCP Internal Medicine; Visit Provider Internal Medicine Cardiovascular Disease | DX: Q21.12 Patent foramen ovale (principal) | CPT/HCPCS: 93312; 93325 ==